=== PATIENT | female | born 1960 | race Two or more races ===

== ENCOUNTER 2024-06-09 11:50 | Emergency (ER) | payer OTHER ==
[~2024-06-09] VITALS: Ht 157.5 cm; Wt 78.3 kg
[2024-06-09 11:53] VITALS: BP 151/83; PULSE 105; RESP 16; TEMP 98; O2SAT 99
[2024-06-09] MEDS ORDERED: BUPR300T53 PO (12:26)
[2024-06-09] MEDS ORDERED: LISI10TA27 PO (12:26)
[2024-06-09] MEDS ORDERED: CETI10CA PO (12:26)
[2024-06-09] MEDS ORDERED: NORT10CA2 PO (12:26)
[2024-06-09] MEDS ORDERED: HYDR-3686 PO (12:26)
[2024-06-09] MEDS ORDERED: CLON0.252 PO (12:26)
[2024-06-09] MEDS ORDERED: DULO60CA65 PO (12:26)
[2024-06-09] MEDS ORDERED: BUPR-94 PO (12:26)
[2024-06-09] MEDS ORDERED: ASPI-1264 PO (12:26)
[2024-06-09] MEDS ORDERED: OMEP10CA5 PO (12:28)
[2024-06-09] MEDS ORDERED: FENO67CA14 PO (12:28)
[2024-06-09] MEDS ORDERED: CLON0.5T2 PO (15:20)
== END 2024-06-09 12:30 | disposition home or self-care (01) ==
LOC: ER 11:52
DX: Z76.0 Encounter for issue of repeat prescription (principal); Z88.6 Allergy status to analgesic agent; Z79.82 Long term (current) use of aspirin; Z79.899 Other long term (current) drug therapy
CPT/HCPCS: 99281

== ENCOUNTER 2024-06-11 13:28 | Emergency (ER) | payer OTHER ==
[~2024-06-11 13:28] MED LIST: ASPI-1264 PO; BUPR-94 PO; BUPR300T53 PO; CETI10CA PO; CLON0.5T2 PO; DULO60CA65 PO; FENO67CA14 PO; HYDR-3686 PO; LISI10TA27 PO; NORT10CA2 PO; OMEP10CA5 PO
== END 2024-06-11 15:43 | disposition left against medical advice (07) ==
LOC: ER 13:29
DX: M79.641 Pain in right hand (principal); J02.9 Acute pharyngitis, unspecified; Z53.21 Procedure and treatment not carried out due to patient leaving prior to being seen by health care provider; Z88.6 Allergy status to analgesic agent

== ENCOUNTER 2024-07-11 16:26 | Emergency (ER) | payer OTHER ==
[~2024-07-11] VITALS: Ht 157.5 cm; Wt 77.9 kg
[2024-07-11 16:35] VITALS: BP 151/74; PULSE 86; RESP 16; TEMP 98.4; O2SAT 98
== END 2024-07-11 17:32 | disposition home or self-care (01) ==
LOC: ER 16:27
DX: F32.9 Major depressive disorder, single episode, unspecified (principal); Z88.6 Allergy status to analgesic agent; Z79.899 Other long term (current) drug therapy
CPT/HCPCS: 99281

== ENCOUNTER 2024-10-02 21:08 | Emergency (ER) | payer OTHER ==
[~2024-10-02] VITALS: Ht 157.5 cm; Wt 70.0 kg
[2024-10-02 21:30] VITALS: TEMP 97.9
[2024-10-02 22:03] LABS: BASOPHILS % (AUTO) 0.8 % (0-1); EOSINOPHILS # (AUTO) 0.1 X10'3 (0-0.9); EOSINOPHILS % (AUTO) 1.7 % (0-6); HEMOGLOBIN 12.9 g/dl (12.0-16.0); LYMPHOCYTES # (AUTO) 1.8 X10'3 (1.1-4.8); LYMPHOCYTES % (AUTO) 32.6 % (21-51); MEAN CORPUSCULAR HEMOGLOBIN 27.1 PG (27.0-31.0); MEAN CORPUSCULAR HGB CONC 33.1 g/dL (33.0-36.5); MEAN CORPUSCULAR VOLUME 81.7 FL (78-98); MEAN PLATELET VOLUME 8.6 FL (7.4-10.4); MONOCYTES # (AUTO) 0.5 X10'3 (0-0.9); NEUTROPHILS % (AUTO) 54.9 % (42-75); PLATELET COUNT 353 X10'3 (140-440); RED BLOOD COUNT 4.78 X10'6 (4.20-5.60); RED CELL DISTRIBUTION WIDTH 13.5 % (11.5-14.5); WHITE BLOOD COUNT 5.4 X10'3 (4.5-11.0)
[2024-10-02 22:21] LABS: ALANINE AMINOTRANSFERASE 29 U/L (12-78); ALBUMIN 4.3 G/DL (3.4-5.0); ALBUMIN/GLOBULIN RATIO 1.2 (1.1-1.5); ALKALINE PHOSPHATASE 92 IU/L (46-116); ANION GAP 11 (8-16); ASPARTATE AMINO TRANSFERASE 22 U/L (10-37); BILIRUBIN,TOTAL 0.5 MG/DL (0.1-1.0); BLOOD UREA NITROGEN 34 MG/DL (7-18); BUN/CREATININE RATIO 13.3 (10.0-20.0); CHLORIDE 102 MMOL/L (99-107); CREATININE 2.56 MG/DL (0.40-0.90); GLUCOSE 132 MG/DL (70-104); LIPASE 54 U/L (16-77); POTASSIUM 3.4 MMOL/L (3.5-5.1); SODIUM 141 MMOL/L (135-145); TOTAL CARBON DIOXIDE 28.3 MMOL/L (24-32); eCRCL 18 ML/MIN; eGFR 19 ML/MIN
[2024-10-03 00:53] LABS: BILIRUBIN,URINE NEGATIVE (Neg); CLARITY,URINE CLEAR (Clear); COLOR,URINE YELLOW (Yellow); GLUCOSE, URINE NEGATIVE (Neg); KETONES,URINE NEGATIVE (Neg); LEUKOCYTE ESTERASE ,URINE NEGATIVE (Neg); NITRITES, URINE NEGATIVE (Neg); OCCULT BLOOD,URINE NEGATIVE (Neg); PROTEIN,URINE 30 mg/dl (Neg); UROBILINOGEN,URINE 0.2 E.U/dL (0.2-1.0)
[2024-10-03 01:02] LABS: UA COLLECTION TYPE CLN CATCH MIDSTREAM
[2024-10-03 01:04] LABS: BACTERIA,URINE 3+ /HPF (Neg); RBC,URINE 0-2 /HPF (0-2); SQUAMOUS EPITHELIAL CELL,UR FEW /LPF (FEW); WBC,URINE 50-100 /HPF (0-4)
[2024-10-03] MEDS: CefTRIAXone/D5W-Rocephin 1gm 50 ML IV ONE (02:22)
[2024-10-03 02:25] VITALS: BP 117/61; PULSE 88; RESP 16; O2SAT 96
--- NOTE | 2024-10-03 02:46 | RADIOLOGY REPORT ---
Exam: CT CT ABDOMEN PELVIS History: LLQ and left flank pain Comparison Study: None Technique: Multidetector spiral CT of the abdomen was performed from lung bases to pubic symphysis. I maging was performed without IV contrast. Axial, coronal and sagittal multiplanar reformats were obta ined from the axial data set by the technologist. Radiation Dose : 1. Abdomen/Pelvis: CTDIvol 20.65 mGy, DLP 1007.93 mGy*cm. Findings: Evaluation of solid organs is limited due to lack of intravenous contrast use. Lung Bases: No acute or significant lung base finding. Normal heart size. No pleural or pericardial effusion. Liver: The liver is normal in size. No focal lesions. Gallbladder and Biliary Tree: Unremarkable Spleen: Unremarkable Pancreas: The pancreas is grossly normal in appearance. Adrenal Glands: Unremarkable Kidneys: Kidneys are grossly normal without calculi or hydronephrosis. Bladder: Grossly unremarkable for degree of distention. Bowel: The stomach is grossly normal in appearance. Diverticulosis coli without CT evidence of acute diverticulitis. Small bowel and colon are normal in caliber and distribution. The appendix is not vis ualized; however, no secondary findings of acute appendicitis identified. Ascites: Absent Lymphadenopathy: No mesenteric, retroperitoneal or periportal lymphadenopathy. Abdominal Wall and Mesentery: Small fat containing umbilical hernia. Vasculature: The visualized abdominal aorta is normal in size and caliber. Evaluation of abdominal a nd pelvic vessels is limited due to lack of intravenous contrast. Pelvic Organs: Unremarkable Musculoskeletal: No aggressive focal bony lesions, acute fractures or dislocation. IMPRESSION: 1. No acute abdominal or pelvic findings. 2. Diverticulosis coli without CT evidence of acute diverticulitis. Radiation optimization: All CT scans at this facility use at least one of these dose optimization servando hniques: automated exposure control mA and/or kV adjustment per patient size (includes targeted exam s where dose is matched to clinical indication) or iterative reconstruction.
[2024-10-03] MEDS ORDERED: CEPH-585 PO (03:27)
--- NOTE | 2024-10-03 03:27 | Physician Documentation ---
History of Present Illness Chief Complaint: Abdominal Pain Stated Complaint: ABD PAIN Time Seen by MD: 00:16 Source: patient Mode of Arrival: POV Exam Limitations: no limitations HPI Patient who has stopped taking her antidepressant and antianxiety medications presenting with left lower quadrant pain and left flank pain. She reports a history of diverticulosis. No history of surgery. No change in bowel pattern. No fever or rash. Pain is mild to moderate with no alleviating or precipitating factors. Medication Reconciliation Allergies: Coded Allergies: lorazepam (Verified Allergy, Unknown, HYPERACTIVITY, 10/02/24) ibuprofen (Unverified Adverse Reaction, Mild, abd pain, 06/09/24) Scheduled Aspirin* (Aspirin*), 1 TAB PO DAILY Bupropion HCl (Wellbutrin Xl), 1 TAB PO QAM Bupropion Hcl (Wellbutrin Xl), 1 TAB PO DAILY Cephalexin*Monohydrate* (Keflex*), 1 CAP PO BID Cetirizine Hcl (Zyrtec), 1 CAP PO DAILY Duloxetine HCl (Duloxetine HCl), 1 CAP PO DAILY Fenofibrate,Micronized (Fenofibrate), 1 CAP PO DAILY Hydroxyzine Hcl* (Atarax*), 1 TAB PO Q8H Lisinopril (Lisinopril), 1 TAB PO DAILY Nortriptyline Hcl (Nortriptyline Hcl), 1 CAP PO HS Omeprazole (Omeprazole), 1 CAP PO DAILY Scheduled PRN Clonazepam (Klonopin), 1 TAB PO QDAY PRN PRN for anxiety Review of Systems All Other Systems at this time: Reviewed and Negative Physical Exam Vital Signs: Temperature: 97.9, Source: Temporal, Heart Rate: 88, Respiratory Rate: 16, BP: 117/61, Pulse Oximetry: 96, Weight: 70.000 Oxygen Flow Rate: 0 Physical Exam General: Alert and oriented x4, well-appearing, well-nourished, no acute distress HEENT: Normocephalic, atraumatic, no visible or palpable masses or depression, extraocular movements intact, PERRLA, no scleral icterus, neck is supple and nontender, mucous membranes moist Heart: Regular rate and rhythm, no murmurs, rubs or gallops Lungs: Clear to auscultation bilaterally, normal work of breathing Abdomen: Soft, nontender, no palpable masses, normal bowel sounds Back: Spine is without deformity or tenderness, no CVA tenderness Extremities: Full range of motion, no acute deformity, peripheral pulses intact, no cyanosis or edema Musculoskeletal: Normal gait, normal tone Neurologic: Cranial nerves 2-12 are intact, reflexes normal Psychiatric: Alert and oriented x4, judgment and insight normal, normal mood and affect Skin: Good turgor, no rashes Progress Results/Orders Results/Orders Orders - CATE NERI MD Ct Abdomen Pelvis (10/03/24 01:15) Cult Urine + Alloy Ct (10/03/24 01:05) Culture Blood (10/03/24 02:15) Clonazepam 1mg Tablet (Klonopin 1mg Tabl (10/03/24 03:20) Completed Orders - CATE NERI MD Cbc/Diff (10/02/24 21:35) BMP (10/02/24 21:35) Lipase (10/02/24 21:35) CMP (10/02/24 21:35) Ct Abdomen Pelvis (10/03/24 01:15) Ua W/Microscopic, Cult If Ind (10/03/24 00:43) Ceftriaxone/U4g-Hwjuhfls 1gm (Rocephin 1 (10/03/24 02:00) Lacticsepsis (10/03/24 02:15) Medications Received in ER Medications (Trade) Dose Ordered Sig/Shawanda Route PRN Reason Start Time Stop Time Status Last Admin Dose Admin Ceftriaxone Sodium 50 ml @ 100 mls/hr ONCE ONCE IV 10/03/24 02:00 10/03/24 02:29 DC 10/03/24 02:22 100 MLS/HR Vital Signs 10/02/24 10/03/24 10/03/24 10/03/24 21:30 00:02 00:07 02:25 Temp 97.9 Pulse 85 77 88 Resp 16 16 16 16 B/P (MAP) 116/68 143/72 (95) 117/61 (79) Pulse Ox 98 95 96 O2 Flow Rate 0 0 Laboratory Tests Test 10/02/24 21:49 10/03/24 00:43 10/03/24 02:23 White Blood Count 5.4 Red Blood Count 4.78 Hemoglobin 12.9 Hematocrit 39.0 Mean Corpuscular Volume 81.7 Mean Corpuscular Hemoglobin 27.1 Mean Corpuscular Hemoglobin Concent 33.1 Red Cell Distribution Width 13.5 Platelet Count 353 Mean Platelet Volume 8.6 Neutrophils (%) (Auto) 54.9 Lymphocytes (%) (Auto) 32.6 Monocytes (%) (Auto) 10.0 Eosinophils (%) (Auto) 1.7 Basophils (%) (Auto) 0.8 Neutrophils # (Auto) 3.0 Lymphocytes # (Auto) 1.8 Monocytes # (Auto) 0.5 Eosinophils # (Auto) 0.1 Basophils # (Auto) 0.0 CBC Comment Sodium Level 141 Potassium Level 3.4 L Chloride Level 102 Carbon Dioxide Level 28.3 Anion Gap 11 Blood Urea Nitrogen 34 H Creatinine 2.56 H Estimated GFR/1.73 m2 19 BUN/Creatinine Ratio 13.3 Glucose Level 132 H Calcium Level 10.0 Total Bilirubin 0.5 Aspartate Amino Transf (AST/SGOT) 22 Alanine Aminotransferase (ALT/SGPT) 29 Alkaline Phosphatase 92 Total Protein 8.0 Albumin 4.3 Globulin 3.7 Albumin/Globulin Ratio 1.2 Lipase 54 Chemistry Comments Urine Specimen Description Cln catch midstream Urine Color Yellow Urine Clarity Clear Urine pH 6.0 Urine Specific [place] >=1.030 Urine Protein 30 H Urine Glucose (UA) Negative Urine Ketones Negative Urine Occult Blood Negative Urine Nitrite Negative Urine Bilirubin Negative Urine Urobilinogen 0.2 Urine Leukocyte Esterase Negative Urine RBC 0-2 Urine WBC 50-100 H Urine Squamous Epithelial Cells Few Urine Bacteria 3+ Urine Hyaline Casts 10-30 Urine Culture Indicated Indicated Volume Urine Centrifuged 10 ml Urine Comment Lactic Acid Level 1.8 Microbiology Date/Time Source Procedure Growth Status 10/03/24 01:05 Urine Clean Catch Midstream Urine Culture - Preliminary Culture received. Resulted Medical Decision Making Additional Comments Differential includes but is not limited to: Pyelonephritis, nephrolithiasis, urinary tract infection, shingles, diverticulitis, colitis Departure Disposition: HOME / SELF CARE / HOMELESS Impression: Primary Impression: Acute urinary tract infection Additional Impression Text Well-appearing patient in with urinary tract infection. Culture is pending. Gave Rocephin in the ED and starting her on Keflex. Labs and CT otherwise unremarkable. Discharged home in good condition with care instructions. Follow-up with PCP. Return here if new or worsening symptoms prior to follow- up. Condition: Improved Discharge Instructions: Urinary Tract Infection, Adult Additional Instructions: Follow-up if not improving or if new or worsening symptoms. Referrals: NO PRIMARY CARE PROVIDER (PCP) Prescriptions Cephalexin*Monohydrate* (Keflex*) 500 Mg Capsule 1 CAP PO BID, #14 CAP Prov: CATE NERI MD 10/03/24 Education Educated: Patient Educated regarding: diagnosis, treatment, prognosis, need for follow up Signature Scribe Signature: No scribed Attestation: No scribe CATE NERI MD Oct 03, 2024 03:27
[2024-10-03] MEDS: clonazePAM 1mg tablet PO ONE (03:36)
== END 2024-10-03 03:41 | disposition home or self-care (01) ==
LOC: ER 21:09
DX: N39.0 Urinary tract infection, site not specified (principal); Z88.6 Allergy status to analgesic agent; Z88.8 Allergy status to other drugs, medicaments and biological substances
CPT/HCPCS: 36415; 74176; 80053; 81001; 83605; 83690; 85025; 87040; 87088; 96365; 99285; J0696

== ENCOUNTER 2024-10-05 15:33 | Emergency (ER) | payer OTHER ==
[~2024-10-05] VITALS: Ht 157.5 cm; Wt 71.8 kg
[~2024-10-05 15:33] MED LIST changes: +CEPH-585 PO
[2024-10-05 15:48] VITALS: BP 123/81; PULSE 89; RESP 17; O2SAT 99
[2024-10-05] MEDS ORDERED: HYDR-3686 PO (15:55)
[2024-10-05] MEDS ORDERED: ALBU18HF2 INH (15:55)
[2024-10-05] MEDS ORDERED: DIF150T PO (15:55)
--- NOTE | 2024-10-05 15:58 | Physician Documentation ---
HPI ~ General Chief Complaint: Medication Request Stated Complaint: MED REQUEST Time Seen by MD: 15:51 History of Present Illness HPI Comments 63-year-old female requesting medication for possible yeast infection after being diagnosed with a UTI on Keflex currently on day 4 and has 3 more days. Patient is having some itching and would like a pill for itching. As well as her albuterol inhaler refilled. Medication Reconciliation Allergies: Coded Allergies: lorazepam (Verified Allergy, Unknown, HYPERACTIVITY, 10/02/24) ibuprofen (Unverified Adverse Reaction, Mild, abd pain, 06/09/24) Scheduled Aspirin* (Aspirin*), 1 TAB PO DAILY Bupropion HCl (Wellbutrin Xl), 1 TAB PO QAM Bupropion Hcl (Wellbutrin Xl), 1 TAB PO DAILY Cephalexin*Monohydrate* (Keflex*), 1 CAP PO BID Cetirizine Hcl (Zyrtec), 1 CAP PO DAILY Duloxetine HCl (Duloxetine HCl), 1 CAP PO DAILY Fenofibrate,Micronized (Fenofibrate), 1 CAP PO DAILY Hydroxyzine Hcl* (Atarax*), 1 TAB PO Q8H Lisinopril (Lisinopril), 1 TAB PO DAILY Nortriptyline Hcl (Nortriptyline Hcl), 1 CAP PO HS Omeprazole (Omeprazole), 1 CAP PO DAILY Scheduled PRN Clonazepam (Klonopin), 1 TAB PO QDAY PRN PRN for anxiety Review of Systems All Other Systems at this time: Reviewed and Negative Constitutional: Reports: see HPI Physical Exam Physical Exam Vital Signs: RN Vital Signs have been reviewed: Yes, Heart Rate: 89, Respiratory Rate: 17, BP: 123/81, Pulse Oximetry: 99, Weight: 71.800 Oxygen Flow Rate: 0 General Appearance: alert, WD/WN, no apparent distress Respiratory: lungs clear, normal breath sounds, no respiratory distress Chest: no accessory muscle use, chest non-tender Cardiovascular: normal peripheral pulses, regular rate, rhythm, no edema Progress Results/Orders Results/Orders Vital Signs 10/05/24 15:48 Pulse 89 Resp 17 B/P (MAP) 123/81 Pulse Ox 99 O2 Flow Rate 0 Medical Decision Making Findings Medications refilled Departure Time of Disposition: 15:53 Disposition: 01 HOME / SELF CARE / HOMELESS Impression: Primary Impression: General medical exam Additional Impressions: Medication refill Yeast infection Condition: Stable Discharge Instructions: Medicine Refill at the Emergency Department Additional Instructions: Medications as prescribed. Follow up as needed Referrals: NO PRIMARY CARE PROVIDER (PCP) Prescriptions Albuterol Sulfate (Ventolin Hfa) 90 Mcg Hfa.aer.ad 2 PUFFS INH Q4HPRN PRN for wheezing for 30 Days, #18 GM 0 Refills Prov: CARLENE LYONS NP 10/05/24 Fluconazole* (Diflucan*) 150 Mg Tablet 1 TAB PO ONCE for 1 Day, #1 TAB Prov: CARLENE LYONS NP 10/05/24 Hydroxyzine Hcl* (Atarax*) 25 Mg Tablet 1 TAB PO Q8H for anxiety for 30 Days, #90 TAB 3 Refills Prov: CARLENE LYONS NP 10/05/24 Education Educated: Patient Educated regarding: diagnosis, treatment, need for follow up Signature Scribe Signature: No scribe Attestation: The note accurately reflects work and decisions made by me.Carlene WONG 10/05/24 16:01 CARLENE LYONS NP Oct 05, 2024 15:58
== END 2024-10-05 16:26 | disposition home or self-care (01) ==
LOC: ER 15:34
DX: Z00.8 Encounter for other general examination (principal); Z76.0 Encounter for issue of repeat prescription; B37.9 Candidiasis, unspecified; Z88.6 Allergy status to analgesic agent; Z88.8 Allergy status to other drugs, medicaments and biological substances
CPT/HCPCS: 99283

== ENCOUNTER 2024-10-26 14:22 | Emergency (ER) | payer OTHER ==
[~2024-10-26] VITALS: Ht 157.5 cm; Wt 61.1 kg
[~2024-10-26 14:22] MED LIST changes: +ALBU18HF2 INH
[2024-10-26 15:01] LABS: MEAN PLATELET VOLUME 8.5 FL (7.4-10.4); RED CELL DISTRIBUTION WIDTH 13.4 % (11.5-14.5)
[2024-10-26 15:12] LABS: CREATININE 1.78 MG/DL (0.40-0.90); TOTAL CARBON DIOXIDE 23.5 MMOL/L (24-32); eCRCL 26 ML/MIN; eGFR 29 ML/MIN
--- NOTE | 2024-10-26 15:14 | Physician Documentation ---
History of Present Illness ~ Chief Complaint: Abdominal Pain Stated Complaint: ABD PAIN Time Seen by MD: 15:10 HPI This is a 63-year-old female with history of diverticulosis who presents with one-week of loose stools and three days of left-sided abdominal pain, patient reports pain is worse in left upper quadrant. Patient describes pain as cramping. Patient reports no fevers and no blood in stool. Patient reports that she was treated in the last month for UTI and pyelonephritis. Patient additionally reports that she has history of anxiety though after moving from out of the area has run out of her normally prescribed anxiety medications. Patient reports no other acute symptoms or concerns. Medication Reconciliation Allergies: Coded Allergies: lorazepam (Verified Allergy, Unknown, HYPERACTIVITY, 10/02/24) ibuprofen (Unverified Adverse Reaction, Mild, abd pain, 06/09/24) Scheduled Amox Tr/Potassium Clavulanate (Augmentin 875-125 Tablet), 1 TAB PO Q12H Aspirin* (Aspirin*), 1 TAB PO DAILY Bupropion HCl (Wellbutrin Xl), 1 TAB PO QAM Bupropion Hcl (Wellbutrin Xl), 1 TAB PO DAILY Cephalexin*Monohydrate* (Keflex*), 1 CAP PO BID Cetirizine Hcl (Zyrtec), 1 CAP PO DAILY Duloxetine HCl (Duloxetine HCl), 1 CAP PO DAILY Fenofibrate,Micronized (Fenofibrate), 1 CAP PO DAILY Hydroxyzine Hcl* (Atarax*), 1 TAB PO Q8H Hydroxyzine Hcl* (Atarax*), 1 TAB PO Q8H Lisinopril (Lisinopril), 1 TAB PO DAILY Nortriptyline Hcl (Nortriptyline Hcl), 1 CAP PO HS Omeprazole (Omeprazole), 1 CAP PO DAILY Scheduled PRN Albuterol Sulfate (Ventolin Hfa), 2 PUFFS INH Q4HPRN PRN for wheezing Clonazepam (Klonopin), 1 TAB PO QDAY PRN PRN for anxiety Past Medical History Past Medical History: Diverticulosis, *PSYCH*, Anxiety Review of Systems ROS Left-sided abdominal pain as stated above in the HPI, otherwise all systems are reviewed and negative. Physical Exam Vital Signs: Temperature: 96.0, Source: Temporal, Heart Rate: 70, Respiratory Rate: 15, BP: 107/58, Pulse Oximetry: 99, Weight: 61.150 Physical Exam VITALS: Reviewed and as above. GENERAL: Alert, nontoxic appearing, no apparent distress. RESPIRATORY: No increased work of breathing, no respiratory distress, speaking in full clear sentences, clear lung sounds all mariano CV: Regular rate and rhythm no murmur BACK: No CVA tenderness GI: Soft, nondistended, nontender, no rebound, no guarding, bowel sounds present Progress Results/Orders Results/Orders Orders - BARRY HERRERAP Ct Abdomen Pelvis (10/26/24 15:29) Completed Orders - BARRY HERRERA [employer] Normal Saline 1000ml (Sodium Chloride 10 (10/26/24 15:25) Ct Abdomen Pelvis (10/26/24 15:29) Hydroxyzine Tablet (Atarax Tablet) (10/26/24 17:50) Amox Tr/Potassium Clavulanate (Augmentin (10/26/24 17:50) Amox Tr/Potassium Clavulanate (Augmentin (10/26/24 18:50) Hydroxyzine Tablet (Atarax Tablet) (10/26/24 18:50) Medications Received in ER Medications (Trade) Dose Ordered Sig/Shawanda Route PRN Reason Start Time Stop Time Status Last Admin Dose Admin (sodium chloride 1000ml IV soln) 1,000 ml ONCE ONCE IVB 10/26/24 15:25 10/26/24 15:26 DC 10/26/24 16:05 1,000 ML (Augmentin 875-125mg tablet) 1 tab ONCE ONCE PO 10/26/24 18:50 10/26/24 18:54 DC 10/26/24 19:01 1 TAB (Atarax tablet) 25 mg ONCE ONCE PO 10/26/24 18:50 10/26/24 18:54 DC 10/26/24 19:01 25 MG Vital Signs 10/26/24 10/26/24 10/26/24 10/26/24 14:30 15:37 15:38 16:30 Temp 96.0 Pulse 70 65 70 Resp 15 18 18 B/P (MAP) 107/58 132/61 (84) 136/57 (83) Pulse Ox 99 100 98 O2 Flow Rate 0 0 10/26/24 10/26/24 17:30 19:06 Temp 97.2 Pulse 73 73 Resp 18 12 B/P (MAP) 121/63 (82) 121/63 Pulse Ox 97 97 O2 Flow Rate 0 Laboratory Tests Test 10/26/24 14:51 White Blood Count 4.2 L Red Blood Count 4.62 Hemoglobin 12.8 Hematocrit 38.0 Mean Corpuscular Volume 82.2 Mean Corpuscular Hemoglobin 27.8 Mean Corpuscular Hemoglobin Concent 33.8 Red Cell Distribution Width 13.4 Platelet Count 296 Mean Platelet Volume 8.5 Neutrophils (%) (Auto) 57.4 Lymphocytes (%) (Auto) 29.6 Monocytes (%) (Auto) 8.2 Eosinophils (%) (Auto) 4.1 Basophils (%) (Auto) 0.7 Neutrophils # (Auto) 2.4 Lymphocytes # (Auto) 1.2 Monocytes # (Auto) 0.3 Eosinophils # (Auto) 0.2 Basophils # (Auto) 0.0 CBC Comment Sodium Level 142 Potassium Level 3.6 Chloride Level 107 Carbon Dioxide Level 23.5 L Anion Gap 12 Blood Urea Nitrogen 25 H Creatinine 1.78 H Estimated GFR/1.73 m2 29 BUN/Creatinine Ratio 14.0 Glucose Level 107 H Calcium Level 9.3 Total Bilirubin 0.5 Aspartate Amino Transf (AST/SGOT) 24 Alanine Aminotransferase (ALT/SGPT) 28 Alkaline Phosphatase 101 Total Protein 7.9 Albumin 4.1 Globulin 3.8 Albumin/Globulin Ratio 1.1 Chemistry Comments EKG/XRAY/CT/US/VASC/MRI CT : Impression Exam: CT CT ABDOMEN PELVIS History: Left-sided abdominal pain Comparison Study: CT CT ABDOMEN PELVIS on DOS: 10/03/24 Technique: Multidetector spiral CT of the abdomen was performed from lung bases to pubic symphysis. Imaging was performed without IV contrast. Axial, coronal and sagittal multiplanar reformats were obtained from the axial data set by the technologist. Radiation Dose : 1. Abdomen/Pelvis: CTDIvol 16 mGy, DLP 761 mGy*cm. Findings: Evaluation of solid organs is limited due to lack of intravenous contrast use. Lung Bases: No acute or significant lung base finding. Normal heart size. No pleural or pericardial effusion. Liver: The liver is normal in size. No focal lesions. Gallbladder and Biliary Tree: Unremarkable Spleen: Unremarkable Pancreas: The pancreas is grossly normal in appearance. Adrenal Glands: Unremarkable Kidneys: Kidneys are grossly normal without calculi or hydronephrosis. Bladder: Grossly unremarkable for degree of distention. Bowel: The stomach is grossly normal in appearance. Diverticulosis. Very mild inflammatory changes in the distal descending colon. Normal appendix is visualized in the right lower quadrant without findings of appendicitis. Ascites: Absent Lymphadenopathy: No mesenteric, retroperitoneal or periportal lymphadenopathy. Abdominal Wall and Mesentery: Unremarkable. Vasculature: The visualized abdominal aorta is normal in size and caliber. Evaluation of abdominal and pelvic vessels is limited due to lack of intravenous contrast. Pelvic Organs: Unremarkable Musculoskeletal: No aggressive focal bony lesions, acute fractures or dislocation. IMPRESSION: Possible mild diverticulitis involving the distal descending colon. Electronically Signed by:JOSE MARTIN HOGAN MD Date & Time: 10/26/24 1715 Dictated by: JOSE MARTIN HOGAN MD Dictation date and time: 10/26/24 1551 I have reviewed and agree with the radiology report. I have reviewed and interpreted the imaging as: No intraperitoneal free air, no air-fluid levels Medical Decision Making Findings This 63-year-old female presented with left-sided abdominal pain and loose stools, abdomen was nontender on exam and remainder of physical exam benign. Vital signs stable, lab work did not demonstrate evidence of systemic infection, labs were consistent with dehydration and chronic kidney disease which patient reports history of. CT obtained demonstrating evidence of mild diverticulitis. It was reassuring patient is afebrile with no peritoneal signs, patient is appropriate for outpatient management with oral antibiotics. A UA was ordered to assess for urinary tract infection, however patient was reporting no dysuria and patient wished to leave emergency department prior to giving urine sample, due to lack of urinary symptoms I have low suspicion for urinary tract infection. Patient will have prescribed Atarax for anxiety until she can follow up with a mental health prescriber or primary care provider. Patient provided home care instructions, return to care precautions, and follow up instructions which patient verbalized understanding of. Diff Dx N/V/D:Considerations: Include: Appendicitis, Dehydration, Diarrhea - bacterial, Diarrhea - parasitic, Diarrhea - viral, Diverticulitis, Diverticulosis, Drug toxicity, Electrolyte imbalance, Food poisoning, Gastroenteritis, GI bleed, Hypovolemia, Hypotension, Inflammatory BD, Renal failure, Urolithiasis, Urinary obstruction, UTI Departure Disposition: HOME / SELF CARE / HOMELESS Impression: Primary Impression: Diverticulitis Additional Impressions: Anxiety Dehydration Condition: Improved Discharge Instructions: Dehydration, Adult, Diverticulitis, [id number] Additional Instructions: Stay well hydrated, please take antibiotics as prescribed, may use the prescribed medication for anxiety the be aware it can make you drowsy. Please follow up with a primary mental health provider to manage your anxiety medications in the future. Please follow up with your primary care provider in the next few days. Please return to the emergency department for any new or worsening concerning symptoms including but not limited to worsening pain, blood in your stools, or if you develop a fever over 100.4 that does not lower with ibuprofen or Tylenol. Referrals: NO PRIMARY CARE PROVIDER (PCP) Prescriptions Amox Tr/Potassium Clavulanate (Augmentin 875-125 Tablet) 1 Each Tablet 1 TAB PO Q12H for 7 Days, #14 TAB Prov: BARRY HERRERA 10/26/24 Hydroxyzine Hcl* (Atarax*) 25 Mg Tablet 1 TAB PO Q8H for anxiety for 10 Days, #30 TAB Prov: BARRY HERRERA 10/26/24 Education Educated: Patient Educated regarding: diagnosis, treatment, prognosis, need for follow up Signature Scribe Signature: No scribe Attestation: The note accurately reflects work and decisions made by me.JUDITH Marcos 10/26/24 21:08 BARRY HERRERA Oct 26, 2024 15:14
[2024-10-26] MEDS: normal saline 1000ML IV soln IVB ONE (16:05)
--- NOTE | 2024-10-26 17:17 | RADIOLOGY REPORT ---
Exam: CT CT ABDOMEN PELVIS History: Left-sided abdominal pain Comparison Study: CT CT ABDOMEN PELVIS on DOS: 10/03/24 Technique: Multidetector spiral CT of the abdomen was performed from lung bases to pubic symphysis. I maging was performed without IV contrast. Axial, coronal and sagittal multiplanar reformats were obta ined from the axial data set by the technologist. Radiation Dose : 1. Abdomen/Pelvis: CTDIvol 16 mGy, DLP 761 mGy*cm. Findings: Evaluation of solid organs is limited due to lack of intravenous contrast use. Lung Bases: No acute or significant lung base finding. Normal heart size. No pleural or pericardial effusion. Liver: The liver is normal in size. No focal lesions. Gallbladder and Biliary Tree: Unremarkable Spleen: Unremarkable Pancreas: The pancreas is grossly normal in appearance. Adrenal Glands: Unremarkable Kidneys: Kidneys are grossly normal without calculi or hydronephrosis. Bladder: Grossly unremarkable for degree of distention. Bowel: The stomach is grossly normal in appearance. Diverticulosis. Very mild inflammatory changes in the distal descending colon. Normal appendix is visualized in the right lower quadrant without findi ngs of appendicitis. Ascites: Absent Lymphadenopathy: No mesenteric, retroperitoneal or periportal lymphadenopathy. Abdominal Wall and Mesentery: Unremarkable. Vasculature: The visualized abdominal aorta is normal in size and caliber. Evaluation of abdominal a nd pelvic vessels is limited due to lack of intravenous contrast. Pelvic Organs: Unremarkable Musculoskeletal: No aggressive focal bony lesions, acute fractures or dislocation. IMPRESSION: Possible mild diverticulitis involving the distal descending colon.
[2024-10-26] MEDS ORDERED: HYDR-3686 PO (18:00)
[2024-10-26] MEDS ORDERED: AMOX-117 PO (18:00)
[2024-10-26] MEDS: amox tr/potassium clavulanate 875/125mg TAB PO ONE ×2 (18:46→19:01)
[2024-10-26 19:06] VITALS: BP 121/63; PULSE 73; RESP 12; TEMP 97.2; O2SAT 97
== END 2024-10-26 19:04 | disposition home or self-care (01) ==
LOC: ER 14:23
DX: K57.32 Diverticulitis of large intestine without perforation or abscess without bleeding (principal); F41.9 Anxiety disorder, unspecified; E86.0 Dehydration; Z88.6 Allergy status to analgesic agent; Z88.8 Allergy status to other drugs, medicaments and biological substances; Z79.899 Other long term (current) drug therapy
CPT/HCPCS: 36415; 74176; 80053; 85025; 96360; 99285; J7030; Q0177

== ENCOUNTER 2024-10-27 14:24 | Emergency (ER) | payer OTHER ==
[~2024-10-27] VITALS: Ht 157.5 cm; Wt 68.2 kg
[~2024-10-27 14:24] MED LIST changes: +AMOX-117 PO
--- NOTE | 2024-10-27 14:36 | ELECTROCARDIOGRAPH REPORT ---
[facility] Test Date: 2024-10-27 Test Time: 14:34:05 Pat Name: JOSE DUVAL Department: EMERGENCY ROOM Room: Gender: F Sap Fico Architect: MARIA TERESA : 1960 Requested By: KRISTIN BHARDWAJ Order Number: [id number] Reading MD: Measurements Intervals [place] Rate: 97 P: 77 [place]: 165 QRS: 55 QRSD: 89 T: 57 QT: 379 QTc: 482 Interpretive Statements Sinus rhythm Right atrial enlargement Low voltage, precordial leads Minimal ST depression, anterolateral leads Baseline wander in lead(s) V2,V4,V5 Please click the below link to view image of tracing.
[2024-10-27 14:51] LABS: MEAN PLATELET VOLUME 8.6 FL (7.4-10.4); RED CELL DISTRIBUTION WIDTH 13.6 % (11.5-14.5)
--- NOTE | 2024-10-27 15:09 | RADIOLOGY REPORT ---
CHEST RADIOGRAPH Indication: CP Technique: Single frontal view of the chest was obtained COMPARISON: None FINDINGS: Lines and Tubes: None Lungs: Clear Pleura: No effusion. No pneumothorax. Cardiomediastinal contours: Unremarkable Bones: Unremarkable IMPRESSION: 1. No acute disease.
[2024-10-27 15:10] LABS: CREATININE 1.11 MG/DL (0.40-0.90); PRO BRAIN NATRIURETIC PEPTIDE 52 PG/ML (0-125); TOTAL CARBON DIOXIDE 22.6 MMOL/L (24-32); eCRCL 41 ML/MIN; eGFR 50 ML/MIN
--- NOTE | 2024-10-27 15:38 | Physician Documentation ---
History of Present Illness ~ Chief Complaint: Chest Pain Stated Complaint: CP Time Seen by MD: 15:24 HPI This 63-year-old female with a history of anxiety presents with approximately 1 hour of upper left-sided nonradiating chest pain described as sharp, patient was seen by myself yesterday diagnosed with diverticulitis, patient reports that around the same time that she was experiencing chest pain she was also experiencing left-sided abdominal pain similar to pain she was experiencing yesterday. Patient reports pain in both areas have completely resolved. Patient additionally reports feeling of lightheadedness and shortness of breath, patient reports she took her prescribed inhaler for shortness of breath. Patient reports no other acute symptoms or concerns. Medication Reconciliation Allergies: Coded Allergies: lorazepam (Verified Allergy, Unknown, HYPERACTIVITY, 10/02/24) ibuprofen (Unverified Adverse Reaction, Mild, abd pain, 06/09/24) Scheduled Amox Tr/Potassium Clavulanate (Augmentin 875-125 Tablet), 1 TAB PO Q12H Aspirin* (Aspirin*), 1 TAB PO DAILY Bupropion HCl (Wellbutrin Xl), 1 TAB PO QAM Bupropion Hcl (Wellbutrin Xl), 1 TAB PO DAILY Cephalexin*Monohydrate* (Keflex*), 1 CAP PO BID Cetirizine Hcl (Zyrtec), 1 CAP PO DAILY Duloxetine HCl (Duloxetine HCl), 1 CAP PO DAILY Fenofibrate,Micronized (Fenofibrate), 1 CAP PO DAILY Hydroxyzine Hcl* (Atarax*), 1 TAB PO Q8H Hydroxyzine Hcl* (Atarax*), 1 TAB PO Q8H Lisinopril (Lisinopril), 1 TAB PO DAILY Nortriptyline Hcl (Nortriptyline Hcl), 1 CAP PO HS Omeprazole (Omeprazole), 1 CAP PO DAILY Scheduled PRN Albuterol Sulfate (Ventolin Hfa), 2 PUFFS INH Q4HPRN PRN for wheezing Clonazepam (Klonopin), 1 TAB PO QDAY PRN PRN for anxiety Past Medical History Past Medical History: Diverticulosis, *PSYCH*, Anxiety Review of Systems ROS Left-sided nonradiating chest pain, lightheadedness, shortness of breath as stated above in the HPI, otherwise all systems are reviewed and negative. Physical Exam Vital Signs: Temperature: 97.9, Source: Oral, Heart Rate: 97, Respiratory Rate: 18, BP: 129/71, Pulse Oximetry: 100, Weight: 68.180 Physical Exam VITALS: Reviewed and as above. GENERAL: Alert, nontoxic appearing, no apparent distress. HEENT: PERRLA, EOMI RESPIRATORY: No increased work of breathing, no respiratory distress, speaking in full clear sentences CHEST: Nontender to palpation CV: Regular rate and rhythm no murmur BACK: No CVA tenderness GI: Soft, nondistended, nontender, no rebound, no guarding, bowel sounds present MUSCULOSKELETAL: SKIN: Warm and dry NEURO: Ambulating with a steady unassisted gait. Oriented x4, GCS 15 Progress Results/Orders Results/Orders Completed Orders - BARRY HERRERA SHOWER ENCLOSURE INSTALLER Amox Tr/Potassium Clavulanate (Augmentin (10/27/24 15:35) Vital Signs 10/27/24 10/27/24 10/27/24 10/27/24 14:26 16:00 16:46 17:47 Temp 97.9 98.3 Pulse 97 62 75 Resp 18 13 16 B/P (MAP) 129/71 144/64 (90) 144/64 Pulse Ox 100 96 100 O2 Flow Rate 0 Laboratory Tests Test 10/27/24 14:39 10/27/24 16:56 White Blood Count 3.3 L Red Blood Count 4.70 Hemoglobin 12.8 Hematocrit 38.8 Mean Corpuscular Volume 82.7 Mean Corpuscular Hemoglobin 27.3 Mean Corpuscular Hemoglobin Concent 33.1 Red Cell Distribution Width 13.6 Platelet Count 296 Mean Platelet Volume 8.6 Neutrophils (%) (Auto) 38.1 L Lymphocytes (%) (Auto) 48.6 Monocytes (%) (Auto) 7.8 Eosinophils (%) (Auto) 4.6 Basophils (%) (Auto) 0.9 Neutrophils # (Auto) 1.3 L Lymphocytes # (Auto) 1.6 Monocytes # (Auto) 0.3 Eosinophils # (Auto) 0.2 Basophils # (Auto) 0.0 CBC Comment Sodium Level 140 Potassium Level 3.5 Chloride Level 107 Carbon Dioxide Level 22.6 L Anion Gap 10 Blood Urea Nitrogen 22 H Creatinine 1.11 H Estimated GFR/1.73 m2 50 BUN/Creatinine Ratio 19.8 Glucose Level 143 H Calcium Level 9.2 Troponin I High Sensitivity 6 7 Pro-B-Type Natriuretic Peptide 52 Albumin 3.7 Chemistry Comments Troponin I High Sens Percent Delta 16 Troponin I Hi Sens Absolute Change 1 EKG/XRAY/CT/US/VASC/MRI EKG : Additional Comment EKG at 1434 interpreted by myself as sinus rhythm at a rate of 97 normal axis, no ST segment elevation or depression Chest X-Ray : Additional Comments CHEST RADIOGRAPH Indication: CP Technique: Single frontal view of the chest was obtained COMPARISON: None FINDINGS: Lines and Tubes: None Lungs: Clear Pleura: No effusion. No pneumothorax. Cardiomediastinal contours: Unremarkable Bones: Unremarkable IMPRESSION: 1. No acute disease. Electronically Signed by:LELADN TOLEDO MD Date & Time: 10/27/24 1507 Dictated by: LELAND TOLEDO MD Dictation date and time: 10/27/24 1448 I have reviewed and agree with the radiology report. I have reviewed and interpreted the imaging as: No Focal consolidation or pneumothorax Heart Score: Heart Score Response (Comments) Value History Slightly Suspicious 0 EKG Normal 0 Age 45-64 1 Risk Factors 1 or 2 risk factors 1 Troponin Normal limit 0 Total 2 Medical Decision Making Findings This 63-year-old female with history of anxiety and allergy induced asthma presented with approximately 1 hour of sharp nonradiating left upper chest pain, patient did report some mild associated shortness of breath though took prescribed albuterol inhaler for shortness of breath prior to arrival. Upon my exam patient reported symptoms had resolved and patient was feeling otherwise well. EKG did not demonstrate evidence of ischemia, infarction, or dysrhythmia, initial and repeat troponin was not elevated, lab work did not demonstrate significant metabolic or electrolyte abnormality, and patient's physical exam was otherwise benign. Given patient's risk factors and age patient had heart score of two. Patient is hemodynamically stable and appropriate for outpatient follow up. Patient provided follow up instructions, return to care precautions and home care instructions which she verbalized understanding of. Differential Dx:Considerations: Include: angina, aortic dissection, chest wall pain, cholelithiasis, costochondritis, esophageal reflux/spasm, gastritis, herpes zoster, myocardial infarction, pericarditis, pleuritis, pneumonia, pneumothorax, pulmonary embolus Departure Disposition: HOME / SELF CARE / HOMELESS Impression: Primary Impression: Chest pain Qualified Codes: R07.9 - Chest pain, unspecified Condition: Improved Discharge Instructions: Nonspecific Chest Pain, Adult Additional Instructions: Your lab work, chest x-ray, and EKG were all reassuring, you may need a referral to a drupal php developer from your primary care provider for further evaluation. Please continue taking your previously prescribed medications. Please follow up with your primary care provider in the next few days. Please return to the emergency department for any new or worsening concerning symptoms. Referrals: NO PRIMARY CARE PROVIDER (PCP) Education Educated: Patient Educated regarding: diagnosis, treatment, prognosis, need for follow up Signature Scribe Signature: No scribe Attestation: The note accurately reflects work and decisions made by me.JUDITH Marcos 10/28/24 03:13 BARRY HERRERA Oct 27, 2024 15:37
[2024-10-27] MEDS: amox tr/potassium clavulanate 875/125mg TAB PO ONE (16:29)
[2024-10-27 17:47] VITALS: BP 144/64; PULSE 75; RESP 16; TEMP 98.3; O2SAT 100
== END 2024-10-27 17:48 | disposition home or self-care (01) ==
LOC: ER 14:24
DX: R07.9 Chest pain, unspecified (principal); R10.9 Unspecified abdominal pain
CPT/HCPCS: 36415; 71045; 80048; 83880; 84484; 85025; 93005; 99285

== ENCOUNTER 2024-10-30 13:26 | Emergency (ER) | payer OTHER ==
[~2024-10-30] VITALS: Ht 157.5 cm; Wt 71.1 kg
[2024-10-30 13:28] VITALS: BP 145/72; PULSE 96; RESP 18; O2SAT 100
--- NOTE | 2024-10-30 14:01 | RADIOLOGY REPORT ---
CLINICAL INDICATION: LT.ANKLE PAIN AFTER TRIPPING TECHNIQUE: 3 radiographic views of the left ankle were obtained. Comparison: None FINDINGS/IMPRESSION: There is no evidence of acute fracture or dislocation. The visualized joint space is well maintained. The alignment is anatomical. There is no radiopaque foreign body.
--- NOTE | 2024-10-30 14:15 | Physician Documentation ---
History of Present Illness ~ Chief Complaint: Ankle pain Stated Complaint: L FOOT PAIN Time Seen by MD: 14:33 HPI This 63-year-old female presents to the emergency department for an exacerbation of her chronic left knee and ankle pain, present ever since she fell onto a h ole. pain has been ongoing for about the last year. She feels that she is walking [employer] aid, and that her gait is off because one like maybe longer than the other. Denies any chills or fever, chest pain or shortness of breath. Reports feeling overall at baseline. Tetanus witin 5 years: No Medication Reconciliation Allergies: Coded Allergies: lorazepam (Verified Allergy, Unknown, HYPERACTIVITY, 10/30/24) ibuprofen (Unverified Adverse Reaction, Mild, abd pain, 10/30/24) Scheduled Amox Tr/Potassium Clavulanate (Augmentin 875-125 Tablet), 1 TAB PO Q12H Aspirin* (Aspirin*), 1 TAB PO DAILY Bupropion HCl (Wellbutrin Xl), 1 TAB PO QAM Bupropion Hcl (Wellbutrin Xl), 1 TAB PO DAILY Cephalexin*Monohydrate* (Keflex*), 1 CAP PO BID Cetirizine Hcl (Zyrtec), 1 CAP PO DAILY Diclofenac Sodium (Voltaren Arthritis Pain), 1 GM TP QID Duloxetine HCl (Duloxetine HCl), 1 CAP PO DAILY Fenofibrate,Micronized (Fenofibrate), 1 CAP PO DAILY Hydroxyzine Hcl* (Atarax*), 1 TAB PO Q8H Hydroxyzine Hcl* (Atarax*), 1 TAB PO Q8H Lisinopril (Lisinopril), 1 TAB PO DAILY Naproxen (Naproxen), 1 TAB PO Q12H Nortriptyline Hcl (Nortriptyline Hcl), 1 CAP PO HS Omeprazole (Omeprazole), 1 CAP PO DAILY Scheduled PRN Albuterol Sulfate (Ventolin Hfa), 2 PUFFS INH Q4HPRN PRN for wheezing Clonazepam (Klonopin), 1 TAB PO QDAY PRN PRN for anxiety Past Medical History Past Medical History: Diverticulosis, *PSYCH*, Anxiety Review of Systems ROS As stated above in the HPI, otherwise all systems are reviewed and negative. Physical Exam Vital Signs: Temperature: 97.1, Heart Rate: 96, Respiratory Rate: 18, BP: 145/72, Pulse Oximetry: 100, Weight: 71.100 Oxygen Flow Rate: 0 Physical Exam General: Alert, no apparent distress. HEENT: PERRL, EOMI, no injection, moist mucous membranes. Neck: Full range of motion. Respiratory: Lungs clear, no respiratory distress. Chest: No accessory muscle use. Cardiovascular: Regular rate and rhythm, no murmurs. Gastrointestinal: Soft, nontender, nondistended. Bowels sounds present. Extremities: Normal range of motion, no deformity. No hot red joint. No joint instability. Neurologic: Oriented x4. Psychiatric: Normal mood and affect. Skin: Normal color, warm and dry. No edema, no ecchymosis. Progress Results/Orders Results/Orders Orders - LILIANA MURILLO NP Ortho Orders (10/30/24 ) Completed Orders - LILIANA MURILLO NP Aspirin 325mg Tablet (Aspirin 325mg Tabl (10/30/24 15:00) Medications Received in ER Medications (Trade) Dose Ordered Sig/Shawanda Route PRN Reason Start Time Stop Time Status Last Admin Dose Admin (aspirin 325mg tablet) 2 tab ONCE ONCE PO 10/30/24 15:00 10/30/24 15:01 DC 10/30/24 15:04 2 TAB Vital Signs 10/30/24 13:28 Temp 97.1 Pulse 96 Resp 18 B/P (MAP) 145/72 Pulse Ox 100 O2 Flow Rate 0 EKG/XRAY/CT/US/VASC/MRI Bone/Soft Tissue X-Ray (Spine) : Additional Comment [address] [address] DIAGNOSTIC RADIOLOGY Patient: JOSE DUVAL Medical Record: [id number] : 1960, Age: 63 Sex: Female Location: ER Patient Status: [facility] ER Service Date/Time: 10/30/241329 Ordering Physician: GONZALO QUINN DO Exam: ANKLE, COMPLETE(3VW MIN) CLINICAL INDICATION: LT.ANKLE PAIN AFTER TRIPPING TECHNIQUE: 3 radiographic views of the left ankle were obtained. Comparison: None FINDINGS/IMPRESSION: There is no evidence of acute fracture or dislocation. The visualized joint space is well maintained. The alignment is anatomical. There is no radiopaque foreign body. Electronically Signed by:MARIBETH LEON MD Date & Time: 10/30/241358 Dictated by: MARIBETH LEON MD Dictation date and time: 10/30/241358 Primary Care Provider: NO PRIMARY CARE PROVIDER cc: GONZALO QUINN DO ~ Medical Decision Making General Diff Dx:Considerations: Include: Abrasion, Contusion, Fracture, Hematoma, Laceration, Malunion, Neurovascular injury, Open fracture, Sprain Departure Time of Disposition: 14:38 Disposition: 01 HOME / SELF CARE / HOMELESS Impression: Primary Impression: Sprain of ankle Additional Impressions: Left knee pain Vaginal itching Condition: Stable Discharge Instructions: Ankle Sprain, Chronic Knee Pain, Adult, Vaginitis Additional Instructions: Use the provided knee brace for stability and comfort. Ice the knee frequently. Take the prescribed medications for pain. See your primary care provider soon, request a referral to physical therapy. You may need to see an orthopedist eventually. Return if worse. You requested a dose of Diflucan due to concerns for vaginal yeast infection with recent antibiotic use. This was sent. Referrals: NO PRIMARY CARE PROVIDER (PCP) Prescriptions Fluconazole* (Diflucan*) 150 Mg Tablet 1 TAB PO ONCE for 1 Day, #1 TAB Prov: LILIANA MURILLO NP 10/30/24 Naproxen (Naproxen) 500 Mg Tablet 1 TAB PO Q12H, #20 TAB Prov: LILIANA MURILLO NP 10/30/24 Diclofenac Sodium (Voltaren Arthritis Pain) 1 % Gel..gram. 1 GM TP QID for pain for 10 Days, #1 EA Prov: LILIANA MURILLO NP 10/30/24 Education Educated: Patient Educated regarding: diagnosis, treatment, prognosis, need for follow up Signature Scribe Signature: x Attestation: The note accurately reflects work and decisions made by me.Liliana Quigley NP 10/30/24 14:41 LILIANA MURILLO NP Oct 30, 2024 14:15
[2024-10-30] MEDS ORDERED: NAPR-56 PO (14:40)
[2024-10-30] MEDS ORDERED: DICL20GE TP (14:40)
[2024-10-30] MEDS ORDERED: DIF150T PO (15:08)
[2024-10-30 15:31] VITALS: TEMP 97.1
== END 2024-10-30 15:32 | disposition home or self-care (01) ==
LOC: ER 13:26
DX: S93.402A Sprain of unspecified ligament of left ankle, initial encounter (principal); M25.562 Pain in left knee; L29.2 Pruritus vulvae; Z88.8 Allergy status to other drugs, medicaments and biological substances; Z88.6 Allergy status to analgesic agent; W18.40XA Slipping, tripping and stumbling without falling, unspecified, initial encounter; Y93.89 Activity, other specified; Y92.89 Other specified places as the place of occurrence of the external cause; Y99.8 Other external cause status
CPT/HCPCS: 29530; 73610; 99283; A6449

== ENCOUNTER 2024-11-01 12:10 | Emergency (ER) | payer OTHER ==
[~2024-11-01] VITALS: Ht 157.5 cm; Wt 72.2 kg
[~2024-11-01 12:10] MED LIST changes: +DICL20GE TP; +DIF150T PO; +NAPR-56 PO
[2024-11-01 12:19] VITALS: TEMP 96.9
[2024-11-01 12:41] LABS: MEAN PLATELET VOLUME 8.4 FL (7.4-10.4); RED CELL DISTRIBUTION WIDTH 13.5 % (11.5-14.5)
--- NOTE | 2024-11-01 12:44 | RADIOLOGY REPORT ---
EXAM: DI CHEST,SINGLE VIEW Indication: CP Technique: Single frontal view of the chest was obtained Comparison: DI CHEST,SINGLE VIEW on DOS: 10/27/24 FINDINGS: Lines and Tubes: None Lungs: No focal consolidation. Pleura: No effusion. No pneumothorax. Cardiomediastinal contours: Unremarkable Bones: No acute osseous abnormality. IMPRESSION: No acute cardiopulmonary disease.
[2024-11-01 13:00] LABS: CREATININE 0.88 MG/DL (0.40-0.90); PRO BRAIN NATRIURETIC PEPTIDE 541 PG/ML (0-125); TOTAL CARBON DIOXIDE 28.2 MMOL/L (24-32); eCRCL 52 ML/MIN; eGFR 65 ML/MIN
--- NOTE | 2024-11-01 15:19 | Physician Documentation ---
History of Present Illness ~ General Chief Complaint: Multiple Medical Complaints Stated Complaint: MED REACTION Time Seen by MD: 15:14 History of Present Illness Initial Comments 63-year-old female who presents to the ED complaints of sharp chest pain in the left side for the last 2-3 days. She also states that she has been withdrawling from clonazepam weeks and has had difficult to get into see a doctor. She was prescribed hydroxyzine to help with the her anxiety that has not been helping with her withdrawals. Medication Reconciliation Allergies: Coded Allergies: lorazepam (Verified Allergy, Unknown, HYPERACTIVITY, 10/30/24) ibuprofen (Unverified Adverse Reaction, Mild, abd pain, 10/30/24) Scheduled Amox Tr/Potassium Clavulanate (Augmentin 875-125 Tablet), 1 TAB PO Q12H Aspirin* (Aspirin*), 1 TAB PO DAILY Bupropion HCl (Wellbutrin Xl), 1 TAB PO QAM Bupropion Hcl (Wellbutrin Xl), 1 TAB PO DAILY Cephalexin*Monohydrate* (Keflex*), 1 CAP PO BID Cetirizine Hcl (Zyrtec), 1 CAP PO DAILY Diclofenac Sodium (Voltaren Arthritis Pain), 1 GM TP QID Duloxetine HCl (Duloxetine HCl), 1 CAP PO DAILY Fenofibrate,Micronized (Fenofibrate), 1 CAP PO DAILY Hydroxyzine Hcl* (Atarax*), 1 TAB PO Q8H Hydroxyzine Hcl* (Atarax*), 1 TAB PO Q8H Lisinopril (Lisinopril), 1 TAB PO DAILY Naproxen (Naproxen), 1 TAB PO Q12H Nortriptyline Hcl (Nortriptyline Hcl), 1 CAP PO HS Omeprazole (Omeprazole), 1 CAP PO DAILY Scheduled PRN Albuterol Sulfate (Ventolin Hfa), 2 PUFFS INH Q4HPRN PRN for wheezing Clonazepam (Klonopin), 1 TAB PO QDAY PRN PRN for anxiety Discontinued Medications Fluconazole* (Diflucan*), 1 TAB PO ONCE Discontinued Reason: Auto Discontinued Past Medical History Past Medical History: Diverticulosis, *PSYCH*, Anxiety Physical Exam Physical Exam Vital Signs: Temperature: 96.9, Source: Temporal, Heart Rate: 53, Respiratory Rate: 15, BP: 127/79, Pulse Oximetry: 100, Weight: 72.200 Physical Exam General: Alert, no apparent distress. Respiratory: Lungs clear, no respiratory distress. Chest: No accessory muscle use. Cardiovascular: Regular rate and rhythm, no murmurs. Neurologic: Oriented x4. Psychiatric: Anxious appearing Skin: Normal color, warm and dry. No edema, no ecchymosis. Progress Results/Orders Results/Orders Completed Orders - AKILASOHAM Good DARKROOM WORKER Clonazepam 1mg Tablet (Klonopin 1mg Tabl (11/01/24 15:15) Vital Signs 11/01/24 12:19 Temp 96.9 Pulse 53 Resp 15 B/P (MAP) 127/79 Pulse Ox 100 Laboratory Tests Test 11/01/24 12:27 11/01/24 14:14 White Blood Count 4.0 L Red Blood Count 4.20 Hemoglobin 11.8 L Hematocrit 34.3 L Mean Corpuscular Volume 81.6 Mean Corpuscular Hemoglobin 28.0 Mean Corpuscular Hemoglobin Concent 34.3 Red Cell Distribution Width 13.5 Platelet Count 292 Mean Platelet Volume 8.4 Neutrophils (%) (Auto) 49.7 Lymphocytes (%) (Auto) 32.9 Monocytes (%) (Auto) 9.1 Eosinophils (%) (Auto) 7.2 H Basophils (%) (Auto) 1.1 H Neutrophils # (Auto) 2.0 Lymphocytes # (Auto) 1.3 Monocytes # (Auto) 0.4 Eosinophils # (Auto) 0.3 Basophils # (Auto) 0.0 CBC Comment Sodium Level 142 Potassium Level 3.6 Chloride Level 110 H Carbon Dioxide Level 28.2 Anion Gap 4 L Blood Urea Nitrogen 19 H Creatinine 0.88 Estimated GFR/1.73 m2 65 BUN/Creatinine Ratio 21.6 H Glucose Level 84 Calcium Level 8.9 Troponin I High Sensitivity 9 9 Pro-B-Type Natriuretic Peptide 541 H Albumin 3.4 Chemistry Comments Troponin I High Sens Percent Delta 0 Troponin I Hi Sens Absolute Change 0 Medical Decision Making Findings This is almost here with her initially for the complaint chest pain however she states her primary concern is that she is withdrawing from clonazepam. Same he has signs of cardiac events at this time. Her troponins are negative in her age adjusted for a BNP is reassuring. EKG is also unremarkable. A discharge her with a single dose of clonazepam with the advice to follow up with the primary care provider for further evaluation of her anxiety. Explained through that it is difficult for ER provider to prescribe benzodiazepines as we do not have the ability to follow up. she verbalized understanding. However I agreed to discharge with the patient as she was stating she wanted to leave anyway has been. currently meets criteria for outpatient therapy Departure Disposition: HOME / SELF CARE / HOMELESS Impression: Primary Impression: General medical exam Additional Impression: Benzodiazepine dependence Condition: Stable Discharge Instructions: Generalized Anxiety Disorder, Adult Referrals: NO PRIMARY CARE PROVIDER (PCP) Signature Scribe Signature: g Attestation: Scribed for Soham Wilburn Brake Lining Driller by Soham Quigley NP . 11/01/24 15:17 SOHAM WILBURN NP Nov 01, 2024 15:19
[2024-11-01 15:52] VITALS: BP 148/55; PULSE 60; RESP 16; O2SAT 99
--- NOTE | 2024-11-02 10:21 | ELECTROCARDIOGRAPH REPORT ---
[facility] Test Date: 2024-11-01 Test Time: 12:24:51 Pat Name: JOSE DUVAL Department: EMERGENCY ROOM Room: Gender: F Tunneller: AJAY : 1960 Requested By: GONZALO QUINN Order Number: [id number] Reading MD: Measurements Intervals [place] Rate: 59 P: 67 AR: 183 QRS: 68 QRSD: 93 T: 72 QT: 468 QTc: 464 Interpretive Statements Sinus bradycardia Prominent P waves, nondiagnostic Abnormal R-wave progression, early transition Please click the below link to view image of tracing.
== END 2024-11-01 15:54 | disposition home or self-care (01) ==
LOC: ER 12:10
DX: Z00.8 Encounter for other general examination (principal); R07.9 Chest pain, unspecified; R06.02 Shortness of breath; F13.20 Sedative, hypnotic or anxiolytic dependence, uncomplicated; F41.9 Anxiety disorder, unspecified; Z88.6 Allergy status to analgesic agent; Z88.8 Allergy status to other drugs, medicaments and biological substances
CPT/HCPCS: 36415; 71045; 80048; 83880; 84484; 85025; 93005; 99285

== ENCOUNTER 2024-11-07 12:46 | Emergency (ER) | payer OTHER, MEDICAID ==
[~2024-11-07] VITALS: Ht 157.5 cm; Wt 73.0 kg
[~2024-11-07 12:46] MED LIST changes: -AMOX-117 PO; -DIF150T PO
[2024-11-07 12:49] VITALS: BP 141/75; PULSE 79; RESP 16; O2SAT 98
[2024-11-07] MEDS ORDERED: OMEP40CA21 PO (14:18)
[2024-11-07] MEDS ORDERED: LISI20TA28 PO (14:18)
[2024-11-07] MEDS ORDERED: ALBU8HFA INH (14:18)
--- NOTE | 2024-11-07 14:21 | Physician Documentation ---
HPI ~ General Chief Complaint: Medication Request Stated Complaint: MED WITHDRAWAL Time Seen by MD: 13:46 History of Present Illness HPI Comments Of 63-year-old female presents to the ED requesting medication refill for multitude of medications including psychiatric medications. However the patient's states that she does not want to take her psychiatric meds and has not been taking them for one month. Denies any current psychotic symptoms denies any HI SI. She is having difficulty obtaining a primary care or a psychiatrist in his area Without Medications Since: Nov 07, 2024 Medication Reconciliation Allergies: Coded Allergies: lorazepam (Verified Allergy, Unknown, HYPERACTIVITY, 11/07/24) ibuprofen (Unverified Adverse Reaction, Mild, abd pain, 11/07/24) Scheduled Aspirin* (Aspirin*), 1 TAB PO DAILY Bupropion HCl (Wellbutrin Xl), 1 TAB PO QAM Bupropion Hcl (Wellbutrin Xl), 1 TAB PO DAILY Cephalexin*Monohydrate* (Keflex*), 1 CAP PO BID Cetirizine Hcl (Zyrtec), 1 CAP PO DAILY Diclofenac Sodium (Voltaren Arthritis Pain), 1 GM TP QID Duloxetine HCl (Duloxetine HCl), 1 CAP PO DAILY Fenofibrate,Micronized (Fenofibrate), 1 CAP PO DAILY Hydroxyzine Hcl* (Atarax*), 1 TAB PO Q8H Lisinopril (Lisinopril), 1 TAB PO DAILY Naproxen (Naproxen), 1 TAB PO Q12H Nortriptyline Hcl (Nortriptyline Hcl), 1 CAP PO HS Omeprazole (Omeprazole), 1 CAP PO DAILY Scheduled PRN Albuterol Sulfate (Ventolin Hfa), 2 PUFFS INH Q4HPRN PRN for wheezing Clonazepam (Klonopin), 1 TAB PO QDAY PRN PRN for anxiety Discontinued Medications Amox Tr/Potassium Clavulanate (Augmentin 875-125 Tablet), 1 TAB PO Q12H Discontinued Reason: Auto Discontinued Fluconazole* (Diflucan*), 1 TAB PO ONCE Discontinued Reason: Auto Discontinued Hydroxyzine Hcl* (Atarax*), 1 TAB PO Q8H Discontinued Reason: Auto Discontinued Past Medical History Past Medical History: Diverticulosis, *PSYCH*, Anxiety Review of Systems All Other Systems at this time: Reviewed and Negative ROS As stated above in the HPI, otherwise all systems are reviewed and negative. Physical Exam Physical Exam Vital Signs: Temperature: 97.3, Source: Temporal, Heart Rate: 79, Respiratory Rate: 16, BP: 141/75, Pulse Oximetry: 98, Weight: 73.050 Oxygen Flow Rate: 0 Physical Exam Respiratory: Lungs clear, no respiratory distress. Cardiovascular: Regular rate and rhythm, no murmurs. Gastrointestinal: Soft, nontender, nondistended. Bowels sounds present. Neurologic: Oriented x4. Psychiatric: Normal mood and affect. Skin: Normal color, warm and dry. No edema, no ecchymosis. Progress Results/Orders Results/Orders Vital Signs 11/07/24 12:49 Temp 97.3 Pulse 79 Resp 16 B/P (MAP) 141/75 Pulse Ox 98 O2 Flow Rate 0 Medical Decision Making Findings Was able to refill medications as the patient requested. I did tell her I did not feel comfortable refilling clonazepam and explained why an 80 to not being on follow up and preventing abuse Differential Dx:Considerations: Include: Adverse circumstances, Economic, Psychosocial, Medical services unavail., Medication refill, Medication non- compliance, Other Departure Disposition: HOME / SELF CARE / HOMELESS Impression: Primary Impression: General medical exam Condition: Stable Discharge Instructions: Medicine Refill at the Emergency Department Referrals: NO PRIMARY CARE PROVIDER (PCP) Prescriptions albuterol inhaler (Pro-Air Inhaler) 8.5 Gm Inhaler 2 PUFFS INH Q4HPRN PRN for wheezing for 30 Days, #18 GM Prov: SOHAM WILBURN NP 11/07/24 Omeprazole (Prilosec) 40 Mg Capsule 1 CAP PO DAILY for 30 Days, #30 CAP Prov: SOHAM WILBURN NP 11/07/24 Lisinopril (Lisinopril) 20 Mg Tablet 1 TAB PO DAILY for 30 Days, #30 TAB Prov: SOHAM WILBURN NP 11/07/24 Education Educated: Patient Educated regarding: diagnosis Signature Scribe Signature: g Attestation: Scribed for Soham Wilburn Bdr by Soham Quigley NP . 11/07/24 14:20 SOHAM WILBURN NP Nov 07, 2024 14:21
[2024-11-07 14:53] VITALS: TEMP 97.3
== END 2024-11-07 14:55 | disposition home or self-care (01) ==
LOC: ER 12:46
DX: Z00.8 Encounter for other general examination (principal); Z76.0 Encounter for issue of repeat prescription; Z88.6 Allergy status to analgesic agent; Z88.8 Allergy status to other drugs, medicaments and biological substances
CPT/HCPCS: 99283

== ENCOUNTER 2024-11-11 16:40 | Emergency (ER) | payer OTHER, MEDICAID ==
[~2024-11-11] VITALS: Ht 157.5 cm; Wt 75.0 kg
[~2024-11-11 16:40] MED LIST changes: +ALBU8HFA INH; +LISI20TA28 PO; +OMEP40CA21 PO
[2024-11-11 16:45] VITALS: BP 152/84; PULSE 83; RESP 16; TEMP 97.7; O2SAT 96
--- NOTE | 2024-11-11 20:12 | Physician Documentation ---
History of Present Illness ~ Chief Complaint: Laceration Stated Complaint: LAC ON FINGER Time Seen by MD: 18:18 OK to notify your PCP?: Yes Source: patient Mode of Arrival: POV Exam Limitations: no limitations HPI 63-year-old female presents with small laceration to the tip of her right pinky finger. She states that she was washing knives in the sink in accidentally cut herself. She does not take any blood thinners at home. Her last tetanus shot is more than 5 years ago. Tetanus Within 5 Years: No Medication Reconciliation Allergies: Coded Allergies: lorazepam (Verified Allergy, Unknown, HYPERACTIVITY, 11/07/24) ibuprofen (Unverified Adverse Reaction, Mild, abd pain, 11/07/24) Scheduled Aspirin* (Aspirin*), 1 TAB PO DAILY Bupropion HCl (Wellbutrin Xl), 1 TAB PO QAM Bupropion Hcl (Wellbutrin Xl), 1 TAB PO DAILY Cephalexin*Monohydrate* (Keflex*), 1 CAP PO BID Cetirizine Hcl (Zyrtec), 1 CAP PO DAILY Diclofenac Sodium (Voltaren Arthritis Pain), 1 GM TP QID Duloxetine HCl (Duloxetine HCl), 1 CAP PO DAILY Fenofibrate,Micronized (Fenofibrate), 1 CAP PO DAILY Hydroxyzine Hcl* (Atarax*), 1 TAB PO Q8H Lisinopril (Lisinopril), 1 TAB PO DAILY Lisinopril (Lisinopril), 1 TAB PO DAILY Naproxen (Naproxen), 1 TAB PO Q12H Nortriptyline Hcl (Nortriptyline Hcl), 1 CAP PO HS Omeprazole (Omeprazole), 1 CAP PO DAILY Omeprazole (Prilosec), 1 CAP PO DAILY Scheduled PRN Albuterol Sulfate (Ventolin Hfa), 2 PUFFS INH Q4HPRN PRN for wheezing Clonazepam (Klonopin), 1 TAB PO QDAY PRN PRN for anxiety albuterol inhaler (Pro-Air Inhaler), 2 PUFFS INH Q4HPRN PRN for wheezing Discontinued Medications Hydroxyzine Hcl* (Atarax*), 1 TAB PO Q8H Discontinued Reason: Auto Discontinued Past Medical History Past Medical History: Diverticulosis, *PSYCH*, Anxiety Smoking Status: Never smoker Review of Systems All Other Systems at this time: Reviewed and Negative Physical Exam Vital Signs: RN Vital Signs have been reviewed: Yes, Temperature: 97.7, Source: Temporal, Heart Rate: 83, Respiratory Rate: 16, BP: 152/84, Pulse Oximetry: 96, Weight: 75.000 Oxygen Flow Rate: 0 Pulse Oximetry Reflects: adequate oxygenation Physical Exam General: Alert, no distress. HEENT: No injection, moist mucous membranes. Neck: Full range of motion. Respiratory: No respiratory distress, equal chest rise and fall. Chest: No accessory muscle use. Cardiovascular: Regular rate and rhythm. Gastrointestinal: Nondistended. Extremities: Normal range of motion, no deformity. Neurologic: Oriented x4. Psychiatric: Normal mood and affect. Skin: Small laceration approximately 1 cm across the right pad of the pinky finger. Bleeding controlled with pressure. Procedures Laceration/Wound Repair Laceration : Location: Right pinky finger Length (cm): 1 Anesthesia: none Prep: irrigated by nurse Debrided: minimal Undermining: none Margins: flaps aligned Foreign Body: not identified Repaired: skin Wound Repaired With: Steri-strips, Dermabond Layer Closure?: No Dressing Applied: non-adherent Splint Applied?: Yes Sling Applied?: No Tolerated Procedure Well?: yes, no complications Progress Results/Orders Results/Orders Vital Signs 11/11/24 16:45 Temp 97.7 Pulse 83 Resp 16 B/P (MAP) 152/84 Pulse Ox 96 O2 Flow Rate 0 Medical Decision Making Findings 63-year-old female presents with a superficial laceration to her right pinky approximately 1 cm superficial skin. She is requesting to not have stitches placed. I used Dermabond and Steri-Strips to help secure the wound and the flaps aligned well. I placed her in a finger splint just so she can bend her pinky in cause that laceration to reopen underneath the glue. She was educated to look for signs or symptoms of infection such as streaking redness up the arm or fevers and not feeling well. She has not been given an antibiotic at this time since it has been bleeding for the past couple of hours and we were able to clean it up. She knows her tetanus shot was lessened 10 years ago but more than 5 years ago so we updated that today as well. She can use Tylenol for pain relief at home. We went over Dermabond and Steri-Strips aftercare instructions. Follow up with the primary care provider in the next 5 days and return back here for any new or worsening symptoms. Differential Dx:Considerations: Include: Abrasion, Contusion, Fracture, Neurovascular injury, Retained foreign body Departure Disposition: 01 HOME / SELF CARE / HOMELESS Impression: Primary Impression: Laceration Condition: Stable Discharge Instructions: Laceration Care (Skin Glue), Laceration Care, Adult, [id number] Additional Instructions: Please keep wound clean and dry and wear the splint for the next 5 days just to provide extra support. Please do not use any ointments on the skin glue in the Steri-Strips as this will cause it to lift sooner than intended. Monitor for signs or symptoms of infection and if so please return for antibiotics immediately. Follow up with the primary care provider in the next 5 days and return back here for any new or worsening symptoms. You can use Tylenol for pain relief at home. Referrals: NO PRIMARY CARE PROVIDER (PCP) Education Educated: Patient Educated regarding: diagnosis, treatment, prognosis, need for follow up Additional Comment Medical Screen Exam This patient recieved a medical screening examination. After reviewing the individual's medical complaints with presenting symptoms and performing an appropriate physical examination, it was determined that no immediate life- threatening emergency medical condition is present. This individual is also not a women having contractions. Signature Scribe Signature: . Attestation: Scribed for Meaghan Reagan by Meaghan Quigley NP . 11/11/24 20:13 Parts of this note were created using [employer] voice recognition software program. While efforts were made to correct any mistakes made by this voice recognition software program, nonsensical phrases may remain in this note. In addition, there may be errors and syntax, grammar, content and spelling. MEAGHAN REAGAN ADULT LIVE IN CAREGIVER Nov 11, 2024 20:12
[2024-11-11] MEDS: TETanus/Pertussis (Acell)/Diphther VAC/PF (Tdap-Adult) 0.5ml syringe IMVAC ONE (20:21)
== END 2024-11-11 20:39 | disposition home or self-care (01) ==
LOC: ER 16:41
DX: S61.216A Laceration without foreign body of right little finger without damage to nail, initial encounter (principal); Z88.6 Allergy status to analgesic agent; Z88.8 Allergy status to other drugs, medicaments and biological substances; Z79.82 Long term (current) use of aspirin; W26.0XXA Contact with knife, initial encounter; Y93.G1 Activity, food preparation and clean up; Y92.89 Other specified places as the place of occurrence of the external cause; Y99.8 Other external cause status
CPT/HCPCS: 12001; 90471; 90715; 99283

== ENCOUNTER 2025-01-03 14:38 | Emergency (ER) | payer OTHER, MEDICAID ==
[~2025-01-03] VITALS: Ht 157.5 cm; Wt 75.0 kg
[~2025-01-03 14:38] MED LIST changes: -ALBU8HFA INH; -LISI20TA28 PO; -NAPR-56 PO; -OMEP40CA21 PO
[2025-01-03 14:57] VITALS: BP 149/74; PULSE 93; RESP 16; TEMP 98.2; O2SAT 97
--- NOTE | 2025-01-03 15:13 | Physician Documentation ---
History of Present Illness ~ Chief Complaint: Hypertension Stated Complaint: CHECK BLOOD PRESSURE Time Seen by MD: 15:02 HPI This is a 64-year-old female who presents with concern for elevated blood pressure requesting blood pressure check, patient reports no other acute sym ptoms or concerns though does report that she has had a slight headache though is not concerned about it. Patient reports recently seen by primary care provider and taken off of lisinopril for high blood pressure. Medication Reconciliation Allergies: Coded Allergies: lorazepam (Verified Allergy, Unknown, HYPERACTIVITY, 11/07/24) ibuprofen (Unverified Adverse Reaction, Mild, abd pain, 11/07/24) Scheduled Aspirin* (Aspirin*), 1 TAB PO DAILY Bupropion HCl (Wellbutrin Xl), 1 TAB PO QAM Bupropion Hcl (Wellbutrin Xl), 1 TAB PO DAILY Cephalexin*Monohydrate* (Keflex*), 1 CAP PO BID Cetirizine Hcl (Zyrtec), 1 CAP PO DAILY Diclofenac Sodium (Voltaren Arthritis Pain), 1 GM TP QID Duloxetine HCl (Duloxetine HCl), 1 CAP PO DAILY Fenofibrate,Micronized (Fenofibrate), 1 CAP PO DAILY Hydroxyzine Hcl* (Atarax*), 1 TAB PO Q8H Lisinopril (Lisinopril), 1 TAB PO DAILY Nortriptyline Hcl (Nortriptyline Hcl), 1 CAP PO HS Omeprazole (Omeprazole), 1 CAP PO DAILY Scheduled PRN Albuterol Sulfate (Ventolin Hfa), 2 PUFFS INH Q4HPRN PRN for wheezing Clonazepam (Klonopin), 1 TAB PO QDAY PRN PRN for anxiety Past Medical History Past Medical History: Hypertension, Diverticulosis, *PSYCH*, Anxiety Review of Systems ROS As stated above in the HPI, otherwise all systems are reviewed and negative. Physical Exam Vital Signs: Temperature: 98.2, Heart Rate: 93, Respiratory Rate: 16, BP: 149/74, Pulse Oximetry: 97, Weight: 75.000 Oxygen Flow Rate: 0 Physical Exam VITALS: Reviewed and as above. GENERAL: Alert, nontoxic appearing, no apparent distress. RESPIRATORY: No increased work of breathing, no respiratory distress, speaking in full clear sentences Progress Results/Orders Results/Orders Vital Signs 01/03/25 14:57 Temp 98.2 Pulse 93 Resp 16 B/P (MAP) 149/74 Pulse Ox 97 O2 Flow Rate 0 Medical Decision Making Findings This 64-year-old female presented with concern for high blood pressure, patient's blood pressure is slightly elevated though not to a level to constitute a hypertensive emergency, patient reports slight headache though reports headache is not concerning to her and is a usual headache pattern controlled with [id number] medication. Patient is otherwise well-appearing and appropriate for discharge. Patient provided home care instructions, follow up, and return to care precautions which she verbalized understanding of. Differential Dx:Considerations: Include CHF, Include HTN, essential, Include HT N, accelerated, Include HTN, malignant, Include HTN, encephalopathy, Include medical noncompliance, Include medication withdrawal, Include pulmonary edema, Include renal failure Departure Time of Disposition: 15:11 Disposition: 01 HOME / SELF CARE / HOMELESS Impression: Primary Impression: Hypertension Qualified Codes: I10 - Essential (primary) hypertension Condition: Improved Discharge Instructions: Hypertension, Adult, [id number] Additional Instructions: Continue to follow up with your primary care provider to manage your blood pressure. Please follow up with your primary care provider in the next few days. Please return to the emergency department for any new or worsening concerning symptoms. Referrals: NO PRIMARY CARE PROVIDER (PCP) Education Educated: Patient Educated regarding: diagnosis, treatment, prognosis, need for follow up Signature Scribe Signature: No scribe Attestation: The note accurately reflects work and decisions made by me.JUDITH Marcos 01/04/25 11:45 BARRY HERRERA Jan 03, 2025 15:13
== END 2025-01-03 18:51 | disposition left against medical advice (07) ==
LOC: ER 14:39
DX: I10 Essential (primary) hypertension (principal); Z88.6 Allergy status to analgesic agent; Z88.8 Allergy status to other drugs, medicaments and biological substances
CPT/HCPCS: 99282

== ENCOUNTER → 2025-01-29 | Emergency (ER) | payer OTHER, MEDICAID ==
[~2025-01-29] VITALS: Ht 157.5 cm; Wt 72.7 kg
[2025-01-29 15:33] VITALS: BP 152/74; PULSE 84; RESP 14; TEMP 97.2; O2SAT 94
[2025-01-29 16:19] LABS: INFLUENZA TYPE A ANTIGEN RAPID NEGATIVE (Negative); INFLUENZA TYPE B ANTIGEN RAPID NEGATIVE (Negative)
--- NOTE | 2025-01-29 18:14 | Physician Documentation ---
History of Present Illness ~ Chief Complaint: Flu Symptoms Stated Complaint: FLU SYMPTOMS Time Seen by MD: 17:07 HPI This is a 64-year-old female who presents with approximately 10 days of generalized malaise and body aches with cough for the past three days. Patient reports no fever or chest pain. Patient reports no other acute symptoms or concerns. Medication Reconciliation Allergies: Coded Allergies: lorazepam (Verified Allergy, Unknown, HYPERACTIVITY, 11/07/24) ibuprofen (Unverified Adverse Reaction, Mild, abd pain, 11/07/24) Scheduled Aspirin* (Aspirin*), 1 TAB PO DAILY Bupropion HCl (Wellbutrin Xl), 1 TAB PO QAM Bupropion Hcl (Wellbutrin Xl), 1 TAB PO DAILY Cephalexin*Monohydrate* (Keflex*), 1 CAP PO BID Cetirizine Hcl (Zyrtec), 1 CAP PO DAILY Diclofenac Sodium (Voltaren Arthritis Pain), 1 GM TP QID Duloxetine HCl (Duloxetine HCl), 1 CAP PO DAILY Fenofibrate,Micronized (Fenofibrate), 1 CAP PO DAILY Hydroxyzine Hcl* (Atarax*), 1 TAB PO Q8H Lisinopril (Lisinopril), 1 TAB PO DAILY Nortriptyline Hcl (Nortriptyline Hcl), 1 CAP PO HS Omeprazole (Omeprazole), 1 CAP PO DAILY Scheduled PRN Albuterol Sulfate (Ventolin Hfa), 2 PUFFS INH Q4HPRN PRN for wheezing Clonazepam (Klonopin), 1 TAB PO QDAY PRN PRN for anxiety Past Medical History Past Medical History: Hypertension, Diverticulosis, *PSYCH*, Anxiety Review of Systems ROS As stated above in the HPI, otherwise all systems are reviewed and negative. Physical Exam Vital Signs: Temperature: 97.2, Source: Temporal, Heart Rate: 84, Respiratory Rate: 14, BP: 152/74, Pulse Oximetry: 94, Weight: 72.730 Oxygen Flow Rate: 0 Physical Exam VITALS: Reviewed and as above. GENERAL: Alert, nontoxic appearing, no apparent distress. RESPIRATORY: No increased work of breathing, no respiratory distress, speaking in full clear sentences Progress Results/Orders Results/Orders Orders - BARRY HERRERA Covid19 Binax Poc Result Entry (01/29/25 15:34) Vital Signs 01/29/25 15:33 Temp 97.2 Pulse 84 Resp 14 B/P (MAP) 152/74 Pulse Ox 94 O2 Flow Rate 0 Laboratory Tests Test 01/29/25 15:37 Influenza Type A Antigen Negative Influenza Type B Antigen Negative SARS-CoV-2 Antigen (Rapid) Negative Medical Decision Making Findings MSE performed in triage and patient returned to ED lobby by nursing staff to await available ED room. Patient appears to have eloped from lobby. Differential Dx:Considerations: Include: Allergic rhinitis, Influenza, Otitis media, Peritonsillar abscess, Pharyngitis-Diphtheria, Pharyngitis-Streptoccal, Pharyngitis-Viral, Pneumonia, Pnuemonitis, Sinusitis, URI Departure Disposition: 07 LEFT AWOL/ELOPED Impression: Primary Impression: Cough Qualified Codes: R05.1 - Acute cough Referrals: NO PRIMARY CARE PROVIDER (PCP) Signature Scribe Signature: No scribe Attestation: The note accurately reflects work and decisions made by me.JUDITH Marcos 01/29/25 21:36 BARRY HERRERA Jan 29, 2025 18:14
== END | disposition home or self-care (01) ==
LOC: ER 14:59
DX: R05.9 Cough, unspecified (principal); I10 Essential (primary) hypertension; F41.9 Anxiety disorder, unspecified; Z88.6 Allergy status to analgesic agent; Z88.8 Allergy status to other drugs, medicaments and biological substances; Z79.899 Other long term (current) drug therapy; Z79.82 Long term (current) use of aspirin; Z20.822 Contact with and (suspected) exposure to COVID-19
CPT/HCPCS: 36415; 87804; 87811; 99283

== ENCOUNTER 2025-02-01 14:45 | Emergency (ER) | payer OTHER, MEDICAID ==
[~2025-02-01] VITALS: Ht 157.5 cm; Wt 78.9 kg
[2025-02-01 14:53] VITALS: BP 186/96; PULSE 96; RESP 18; TEMP 97.5; O2SAT 99
--- NOTE | 2025-02-01 16:34 | Physician Documentation ---
History of Present Illness ~ Chief Complaint: Foot pain Stated Complaint: L LEG PAIN Time Seen by MD: 14:58 Source: patient Mode of Arrival: POV Exam Limitations: no limitations HPI 64-year-old patient concerned that she broke the top of her left foot as she was having pain she dropped something on her foot. Tetanus witin 5 years: No Medication Reconciliation Allergies: Coded Allergies: lorazepam (Verified Allergy, Unknown, HYPERACTIVITY, 02/01/25) ibuprofen (Unverified Adverse Reaction, Mild, abd pain, 02/01/25) Scheduled Aspirin* (Aspirin*), 1 TAB PO DAILY Bupropion HCl (Wellbutrin Xl), 1 TAB PO QAM Bupropion Hcl (Wellbutrin Xl), 1 TAB PO DAILY Cephalexin*Monohydrate* (Keflex*), 1 CAP PO BID Cetirizine Hcl (Zyrtec), 1 CAP PO DAILY Diclofenac Sodium (Voltaren Arthritis Pain), 1 GM TP QID Duloxetine HCl (Duloxetine HCl), 1 CAP PO DAILY Fenofibrate,Micronized (Fenofibrate), 1 CAP PO DAILY Hydroxyzine Hcl* (Atarax*), 1 TAB PO Q8H Lisinopril (Lisinopril), 1 TAB PO DAILY Nortriptyline Hcl (Nortriptyline Hcl), 1 CAP PO HS Omeprazole (Omeprazole), 1 CAP PO DAILY Scheduled PRN Albuterol Sulfate (Ventolin Hfa), 2 PUFFS INH Q4HPRN PRN for wheezing Clonazepam (Klonopin), 1 TAB PO QDAY PRN PRN for anxiety Past Medical History Past Medical History: Hypertension, Diverticulosis, *PSYCH*, Anxiety Review of Systems All Other Systems at this time: Reviewed and Negative Musculoskeletal: Reports: see HPI Physical Exam Vital Signs: RN Vital Signs have been reviewed: Yes, Temperature: 97.5, Source: Temporal, Heart Rate: 96, Respiratory Rate: 18, BP: 186/96, Pulse Oximetry: 99, Weight: 78.900 Oxygen Flow Rate: 0 Physical Exam General: Alert, no apparent distress. HEENT: moist mucous membranes. Neck: Full range of motion. Respiratory: No respiratory distress speaking in full sentences Chest: No accessory muscle use. Cardiovascular: Appears well perfused Extremities: No obvious deformity of the dorsal aspect of the left foot no pain with palpation +2 pedal pulse Neurologic: Oriented x4. Psychiatric: Normal mood and affect. Skin: Normal color, warm and dry. No edema, no ecchymosis. Progress Results/Orders Results/Orders Vital Signs 02/01/25 14:53 Temp 97.5 Pulse 96 Resp 18 B/P (MAP) 186/96 Pulse Ox 99 O2 Flow Rate 0 Medical Decision Making Findings Patient stated immediately after examination that she needed to pickler helper her and left lobby Departure Time of Disposition: 16:33 Disposition: 07 LEFT AWOL/ELOPED Impression: Primary Impression: Foot pain Condition: Stable Referrals: NO PRIMARY CARE PROVIDER (PCP) Education Educated: Patient Educated regarding: diagnosis, treatment, need for follow up Signature Scribe Signature: No scribe Attestation: The note accurately reflects work and decisions made by me.Carlene Angel - LIVE AMMUNITION INSPECTOR 02/01/25 16:33 CARLENE ANGEL NP Feb 01, 2025 16:34
== END 2025-02-01 16:18 | disposition left against medical advice (07) ==
LOC: ER 14:46
DX: M79.605 Pain in left leg (principal); I10 Essential (primary) hypertension; F41.9 Anxiety disorder, unspecified; Z88.8 Allergy status to other drugs, medicaments and biological substances; Z79.82 Long term (current) use of aspirin; Z79.899 Other long term (current) drug therapy
CPT/HCPCS: 99281; 99282

== ENCOUNTER 2025-02-02 11:49 | Emergency (ER) | payer OTHER, MEDICAID ==
[~2025-02-02] VITALS: Ht 157.5 cm; Wt 79.1 kg
--- NOTE | 2025-02-02 12:45 | RADIOLOGY REPORT ---
CLINICAL INDICATION: ANKLE PAIN TECHNIQUE: 3v left DI ANKLE, COMPLETE(3VW MIN) Comparison: DI ANKLE, COMPLETE(3VW MIN) on DOS: 10/30/24 FINDINGS/IMPRESSION: : There is no evidence of acute fracture or dislocation. Soft tissues are unremarkable. Small plantar calcaneal spur.
--- NOTE | 2025-02-02 13:45 | Physician Documentation ---
History of Present Illness ~ Chief Complaint: Ankle pain Stated Complaint: ANKLE PAIN Time Seen by MD: 12:05 OK to notify your PCP?: Yes Source: patient Mode of Arrival: POV Exam Limitations: no limitations HPI 64-year-old female presents with left ankle pain for the past 2 weeks. She reports prior injuries to this ankle. She is ambulatory in triage. She has taken aspirin and Aleve for pain prior to arrival. She reports that the ankle appears swollen to her but no edema is noted on exam. She is requesting a flu shot. Tetanus witin 5 years: No Medication Reconciliation Allergies: Coded Allergies: lorazepam (Verified Allergy, Unknown, HYPERACTIVITY, 02/01/25) ibuprofen (Unverified Adverse Reaction, Mild, abd pain, 02/01/25) Scheduled Aspirin* (Aspirin*), 1 TAB PO DAILY Bupropion HCl (Wellbutrin Xl), 1 TAB PO QAM Bupropion Hcl (Wellbutrin Xl), 1 TAB PO DAILY Cephalexin*Monohydrate* (Keflex*), 1 CAP PO BID Cetirizine Hcl (Zyrtec), 1 CAP PO DAILY Diclofenac Sodium (Voltaren Arthritis Pain), 1 GM TP QID Duloxetine HCl (Duloxetine HCl), 1 CAP PO DAILY Fenofibrate,Micronized (Fenofibrate), 1 CAP PO DAILY Hydroxyzine Hcl* (Atarax*), 1 TAB PO Q8H Lisinopril (Lisinopril), 1 TAB PO DAILY Nortriptyline Hcl (Nortriptyline Hcl), 1 CAP PO HS Omeprazole (Omeprazole), 1 CAP PO DAILY Scheduled PRN Albuterol Sulfate (Ventolin Hfa), 2 PUFFS INH Q4HPRN PRN for wheezing Clonazepam (Klonopin), 1 TAB PO QDAY PRN PRN for anxiety Past Medical History Past Medical History: Hypertension, Diverticulosis, *PSYCH*, Anxiety Review of Systems All Other Systems at this time: Reviewed and Negative Physical Exam Vital Signs: RN Vital Signs have been reviewed: Yes, Temperature: 97.8, Source: Oral, Heart Rate: 87, Respiratory Rate: 18, BP: 152/85, Pulse Oximetry: 95, Weight: 79.100 Oxygen Flow Rate: 0 Pulse Oximetry Reflects: adequate oxygenation Physical Exam General: Alert, no distress. HEENT: No injection, moist mucous membranes. Neck: Full range of motion. Respiratory: No respiratory distress, equal chest rise and fall. Chest: No accessory muscle use. Cardiovascular: Regular rate and rhythm. Gastrointestinal: Nondistended. Extremities: Normal range of motion, no deformity. No edema to left ankle, no discoloration. Neurologic: Oriented x4. Psychiatric: Normal mood and affect. Skin: Normal color, warm and dry. Progress Results/Orders Reviewed/noted all lab results: Yes Results/Orders Orders - WENDY REAGAN [facility] Orders (02/02/25 ) Vital Signs 02/02/25 11:53 Temp 97.8 Pulse 87 Resp 18 B/P (MAP) 152/85 Pulse Ox 95 O2 Flow Rate 0 EKG/XRAY/CT/US/VASC/MRI Bone/Soft Tissue X-Ray (Ext.) : Additional Comment Left ankle x-ray as interpreted by me; no joint effusion, no acute fracture, no soft tissue swelling, no dislocation, or foreign body. Medical Decision Making Additional info obtained from: old records Findings She has been when complaining of left ankle pain which started a couple of weeks ago. There is no known trauma event which made this occur. She has been taking aspirin and Aleve for her pain prior to arrival. I educated her that these 2 medication should not be given together and she should pick 1 or the other. I offered her some Tylenol while in the department she declined. She is fully ambulatory. Physical exam is unremarkable. I try to provide her with an Sunil wrap although she declined the Sunil wrap and requested a lace-up ankle brace instead. We placed a lace-up ankle splint to the left ankle. I notified the patient that we do not have flu shots for patients at this time and she can obtain 1 from her local pharmacy. She agrees with the plan. Ankle Diff Dx:Considerations: Include: Arthritis, Contusion, Fracture-fibula, Fracture-tibia, Hematoma, Neurovascular injury, Open fracture, Osteomyelitis, Rheumatoid arthritis Departure Disposition: 01 HOME / SELF CARE / HOMELESS Impression: Primary Impression: Sprain of ankle Condition: Stable Discharge Instructions: Ankle Pain Additional Instructions: Your x-ray is negative for any fracture of your left ankle. As discussed x-rays are limited and do not show much of the soft tissue so if you continue to have pain please follow up with her primary care provider for an outpatient MRI. Return back here for any new or worsening symptoms. You can continue to rest, ice/heat and elevate that ankle as well as where the provided ankle brace for extra support. You can obtain a flu shot from your local pharmacy. Referrals: NO PRIMARY CARE PROVIDER (PCP) Education Educated: Patient Educated regarding: diagnosis, treatment, prognosis, need for follow up Additional Comment Medical Screen Exam This patient recieved a medical screening examination. After reviewing the individual's medical complaints with presenting symptoms and performing an appropriate physical examination, it was determined that no immediate life- threatening emergency medical condition is present. This individual is also not a women having contractions. Signature Scribe Signature: . Attestation: Scribed for Wendy Reagan [facility] by Wendy Quigley NP . 02/02/25 13:51 Parts of this note were created using [employer] voice recognition software program. While efforts were made to correct any mistakes made by this voice recognition software program, nonsensical phrases may remain in this note. In addition, there may be errors and syntax, grammar, content and spelling. WENDY REAGAN [facility] Feb 02, 2025 13:45
[2025-02-02 14:18] VITALS: BP 146/87; PULSE 78; RESP 18; TEMP 97.8; O2SAT 99
== END 2025-02-02 14:23 | disposition home or self-care (01) ==
LOC: ER 11:49
DX: S93.492A Sprain of other ligament of left ankle, initial encounter (principal); I10 Essential (primary) hypertension; F41.9 Anxiety disorder, unspecified; Z88.6 Allergy status to analgesic agent; Z88.8 Allergy status to other drugs, medicaments and biological substances; Z79.82 Long term (current) use of aspirin; Z79.899 Other long term (current) drug therapy; X58.XXXA Exposure to other specified factors, initial encounter; Y93.89 Activity, other specified; Y92.89 Other specified places as the place of occurrence of the external cause; Y99.8 Other external cause status
CPT/HCPCS: 29515; 73610; 99283; A6449; L1930

== ENCOUNTER 2025-02-14 12:25 | Emergency (ER) | payer OTHER, MEDICAID ==
[~2025-02-14] VITALS: Ht 157.5 cm; Wt 77.5 kg
--- NOTE | 2025-02-14 12:58 | Physician Documentation ---
History of Present Illness Chief Complaint: Abdominal Pain Stated Complaint: L SIDED PAIN HPI This is a 64-year-old female who presents with two days of left lower quadrant abdominal pain, patient reports no nausea or vomiting, patient reports history of diverticulitis. Patient reports no blood in stools. Slight change in the characteristic of her normal diverticulitis pain. Medication Reconciliation Allergies: Coded Allergies: lorazepam (Verified Allergy, Unknown, HYPERACTIVITY, 02/14/25) ibuprofen (Unverified Adverse Reaction, Mild, abd pain, 02/14/25) Scheduled Amox Tr/Potassium Clavulanate 875/125 MG (Augmentin 875/125 MG), 1 TAB PO Q12H Aspirin* (Aspirin*), 1 TAB PO DAILY Bupropion HCl (Wellbutrin Xl), 1 TAB PO QAM Bupropion Hcl (Wellbutrin Xl), 1 TAB PO DAILY Cephalexin*Monohydrate* (Keflex*), 1 CAP PO BID Cetirizine Hcl (Zyrtec), 1 CAP PO DAILY Diclofenac Sodium (Voltaren Arthritis Pain), 1 GM TP QID Duloxetine HCl (Duloxetine HCl), 1 CAP PO DAILY Fenofibrate,Micronized (Fenofibrate), 1 CAP PO DAILY Hydroxyzine Hcl* (Atarax*), 1 TAB PO Q8H Lisinopril (Lisinopril), 1 TAB PO DAILY Nortriptyline Hcl (Nortriptyline Hcl), 1 CAP PO HS Omeprazole (Omeprazole), 1 CAP PO DAILY Scheduled PRN Albuterol Sulfate (Ventolin Hfa), 2 PUFFS INH Q4HPRN PRN for wheezing Clonazepam (Klonopin), 1 TAB PO QDAY PRN PRN for anxiety Hydrocodone Bit/Acetaminophen 5/325 MG ([place] 5/325 MG), 1-2 TAB PO Q4-6 hours PRN for pain Past Medical History Past Medical History: Hypertension, Diverticulosis, *PSYCH*, Anxiety Review of Systems All Other Systems at this time: Reviewed and Negative ROS As stated above in the HPI, otherwise all systems are reviewed and negative. Gastrointestinal: Reports: abdominal pain, nausea Physical Exam Vital Signs: RN Vital Signs have been reviewed: Yes, Temperature: 98.1, Source: Oral, Heart Rate: 96, Respiratory Rate: 16, BP: 154/83, Pulse Oximetry: 98, Weight: 77.500 Oxygen Flow Rate: 0 Physical Exam VITALS: Reviewed and as above. GENERAL: Alert, nontoxic appearing, no apparent distress. 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 Labs are reassuring. CT imaging to evaluate for diverticulitis with or without abscess or perforation. CT imaging reassuring. Patient to begin a course antibiotic and pain management. Strict instructions to return if symptoms worsen. Discharged hemodynamically stable. Differential Dx:Considerations: Appendicitis, Bowel obstruction, Cholelithasis, Constipation, Diverticular disease, GI hemorrhage, Hernia, Ischemic bowel, Ovarian cyst/torsion, PID, Urinary obstruction, Urinary tract infection Departure Disposition: 01 HOME / SELF CARE / HOMELESS Impression: Primary Impression: Diverticulitis Condition: Improved Discharge Instructions: Diverticulitis Additional Instructions: Begin medications for diverticulitis without perforation or abscess. Make follow up appointment with your primary care physician for re-evaluation and test of cure. Return to the emergency department if symptoms worsen. Thank you for visiting [facility] Referrals: NO PRIMARY CARE PROVIDER (PCP) Prescriptions Hydrocodone Bit/Acetaminophen 5/325 MG ([place] 5/325 MG) 5 Mg/325 Mg Tablet 1-2 TAB PO Q4-6 hours PRN for pain, #16 TAB Prov: SABAS AVALOS PAC 02/14/25 Amox Tr/Potassium Clavulanate 875/125 MG (Augmentin 875/125 MG) 875 Mg-125 Mg Tablet 1 TAB PO Q12H for 10 Days, #20 TAB Prov: SABAS AVALOS PAC 02/14/25 Education Educated: Patient Educated regarding: diagnosis, treatment, prognosis, need for follow up Signature Scribe Signature: . Attestation: . BARRY HERRERA [employer] Feb 14, 2025 12:58 SABAS AVALOS Feb 14, 2025 17:12
[2025-02-14 13:00] LABS: MEAN PLATELET VOLUME 8.2 FL (7.4-10.4); RED CELL DISTRIBUTION WIDTH 13.4 % (11.5-14.5)
[2025-02-14 13:17] LABS: CREATININE 0.75 MG/DL (0.40-0.90); TOTAL CARBON DIOXIDE 28.8 MMOL/L (24-32); eCRCL 60 ML/MIN; eGFR 78 ML/MIN
[2025-02-14 14:39] LABS: LEUKOCYTE ESTERASE ,URINE NEGATIVE (Neg); NITRITES, URINE NEGATIVE (Neg); OCCULT BLOOD,URINE NEGATIVE (Neg)
[2025-02-14 14:47] LABS: UA COLLECTION TYPE NON-SPECIFIED
[2025-02-14] MEDS ORDERED: iohexol 300mg/ml 100ml inj. ONE (16:06)
--- NOTE | 2025-02-14 16:47 | RADIOLOGY REPORT ---
EXAM: CT CT ABDOMEN PELVIS W/ IV CONTRAST HISTORY: r/o diverticulitis TECHNIQUE: Volumetric multidetector CT images of the abdomen and pelvis were obtained after the administration of intravenous contrast. All CT scans at this facility use dose modulation, iterative reconstruction, and/or weight based dosing when appropriate to reduce radiation dose to as low as reasonably achievable. COMPARISON: CT CT ABDOMEN PELVIS on DOS: 10/26/24 FINDINGS: [LOWER CHEST]: The partially visualized lung bases are clear without a pleural effusion. [LIVER]: Normal hepatic size without suspicious focal lesion. [GALLBLADDER AND BILIARY TREE]: No cholelithiasis. [SPLEEN]: Unremarkable. [PANCREAS]: Unremarkable. [ADRENAL GLANDS]: Unremarkable [KIDNEYS]: No hydronephrosis. No nephroureterolithiasis. [BLADDER]: Unremarkable for the degree distention. [REPRODUCTIVE ORGANS]: Unremarkable. [BOWEL/MESENTERY]: Stomach is normal. Inflammatory stranding of the sigmoid flexure compatible with acute diverticulitis. No pericolonic abscess [ASCITES]: Trace ascites [LYMPHADENOPATHY]: No pathologically enlarged lymph nodes by CT size criteria [VASCULATURE]: No aneurysmal dilatation. [ABDOMINAL WALL]: Unremarkable. [MUSCULOSKELETAL]: No acute fracture or aggressive focal osseous lesion. IMPRESSION: 1. Acute sigmoid diverticulitis without evidence of perforation or abscess.
[2025-02-14] MEDS ORDERED: AMOX-580 PO (17:12)
[2025-02-14] MEDS ORDERED: HYDR-3965 PO (17:12)
[2025-02-14 17:23] VITALS: BP 148/75; PULSE 70; RESP 15; TEMP 98.1; O2SAT 97
== END 2025-02-14 17:26 | disposition home or self-care (01) ==
LOC: ER 12:26
DX: K57.32 Diverticulitis of large intestine without perforation or abscess without bleeding (principal); I10 Essential (primary) hypertension; F41.9 Anxiety disorder, unspecified; Z88.8 Allergy status to other drugs, medicaments and biological substances; Z79.82 Long term (current) use of aspirin; Z79.899 Other long term (current) drug therapy
CPT/HCPCS: 36415; 74177; 80053; 81003; 83690; 85025; 99285; Q9967

== ENCOUNTER 2025-02-19 08:22 | Emergency (ER) | payer OTHER, MEDICAID ==
[~2025-02-19] VITALS: Ht 157.5 cm; Wt 77.3 kg
[~2025-02-19 08:22] MED LIST changes: +AMOX-580 PO; +HYDR-3965 PO
[2025-02-19 08:26] VITALS: BP 147/67; PULSE 75; TEMP 97.8; O2SAT 97
[2025-02-19 08:34] VITALS: RESP 16
--- NOTE | 2025-02-19 09:23 | Physician Documentation ---
History of Present Illness Chief Complaint: Abdominal Pain Stated Complaint: ABD PAIN Time Seen by MD: 09:06 HPI Pt c/o sharp 6/10 left lower quad abd pain started almost 10 days ago ,pt was seen here 4-5 days ago and was diagnosed with diverticulitis and sent home with po antibiotics ,pt is on day 5 of abx without any improvement . here for iv abx treatment Day of Onset: Feb 19, 2025 Medication Reconciliation Allergies: Coded Allergies: lorazepam (Verified Allergy, Unknown, HYPERACTIVITY, 02/14/25) ibuprofen (Unverified Adverse Reaction, Mild, abd pain, 02/14/25) Scheduled Amox Tr/Potassium Clavulanate 875/125 MG (Augmentin 875/125 MG), 1 TAB PO Q12H Aspirin* (Aspirin*), 1 TAB PO DAILY Bupropion HCl (Wellbutrin Xl), 1 TAB PO QAM Bupropion Hcl (Wellbutrin Xl), 1 TAB PO DAILY Cephalexin*Monohydrate* (Keflex*), 1 CAP PO BID Cetirizine Hcl (Zyrtec), 1 CAP PO DAILY Diclofenac Sodium (Voltaren Arthritis Pain), 1 GM TP QID Duloxetine HCl (Duloxetine HCl), 1 CAP PO DAILY Fenofibrate,Micronized (Fenofibrate), 1 CAP PO DAILY Hydroxyzine Hcl* (Atarax*), 1 TAB PO Q8H Lisinopril (Lisinopril), 1 TAB PO DAILY Nortriptyline Hcl (Nortriptyline Hcl), 1 CAP PO HS Omeprazole (Omeprazole), 1 CAP PO DAILY Scheduled PRN Albuterol Sulfate (Ventolin Hfa), 2 PUFFS INH Q4HPRN PRN for wheezing Clonazepam (Klonopin), 1 TAB PO QDAY PRN PRN for anxiety Hydrocodone Bit/Acetaminophen 5/325 MG ([place] 5/325 MG), 1-2 TAB PO Q4-6 hours PRN for pain Past Medical History Past Medical History: Hypertension, Diverticulosis, *PSYCH*, Anxiety Physical Exam Vital Signs: Temperature: 97.8, Heart Rate: 75, Respiratory Rate: 16, BP: 147/67, Pulse Oximetry: 97, Weight: 77.270 Oxygen Flow Rate: 0 Physical Exam General: Alert, no apparent distress. HEENT: PERRL, EOMI, no injection, moist mucous membranes. Neck: Full range of motion. Respiratory: Lungs clear, no respiratory distress. Chest: No accessory muscle use. Cardiovascular: Regular rate and rhythm, no murmurs. Gastrointestinal: Soft, nontender, nondistended. Bowels sounds present. Extremities: Normal range of motion, no deformity. Neurologic: Oriented x4. Psychiatric: Normal mood and affect. Skin: Normal color, warm and dry. No edema, no ecchymosis. Progress Results/Orders Results/Orders Vital Signs 02/19/25 02/19/25 08:26 08:34 Temp 97.8 Pulse 75 Resp 14 16 B/P (MAP) 147/67 Pulse Ox 97 O2 Flow Rate 0 Medical Decision Making Additional information obtaine: N/A Findings eloped Differential Dx:Considerations: -Incomplete, N/A Departure Disposition: 07 LEFT AWOL/ELOPED Impression: Primary Impression: Eloped from emergency department Condition: Stable Referrals: NO PRIMARY CARE PROVIDER (PCP) Signature Scribe Signature: y Attestation: Scribed for Soham Wilburn [employer] Service Supervisor by Soham Quigley NP . 02/19/25 16:04 SOHAM WILBURN NP Feb 19, 2025 09:23
== END 2025-02-19 09:10 | disposition left against medical advice (07) ==
LOC: ER 08:23
DX: R10.32 Left lower quadrant pain (principal); I10 Essential (primary) hypertension; F41.9 Anxiety disorder, unspecified; Z88.8 Allergy status to other drugs, medicaments and biological substances; Z79.899 Other long term (current) drug therapy; Z79.82 Long term (current) use of aspirin
CPT/HCPCS: 99282